=== PATIENT | female | born 1970 | race Caucasian/White ===

== ENCOUNTER 2017-01-10 12:00 | Emergency (ER) | payer SELFPAY ==
[~2017-01-10] VITALS: Ht 167.6 cm; Wt 95.3 kg
[~2017-01-10 12:00] MED LIST: ALLP100T; ALPR.5T; CITA40TA19 PO; CLN.1T; HYDR-34 PO; ONDAN4ODT PO
[2017-01-10] MEDS ORDERED: FLUO40CA12 PO (12:16)
[2017-01-10 12:30] LABS: BILIRUBIN,URINE NEGATIVE (NEGATIVE); KETONES,URINE NEGATIVE (NEGATIVE); LEUKOCYTE ESTERASE ,URINE 3+ (NEGATIVE); NITRITE,URINE NEGATIVE (NEGATIVE); PH,URINE 6 (5-9); PROTEIN,URINE 2+ (NEGATIVE); UROBILINOGEN,URINE NORMAL (NORMAL)
[2017-01-10 12:37] LABS: BASOPHILS % (AUTO) 0 % (0-10); EOSINOPHILS # (AUTO) 0.1 10^3/uL (0.0-0.3); EOSINOPHILS % (AUTO) 1 % (0-10); LYMPHOCYTES # (AUTO) 1.9 X 10^3 (1.0-4.0); LYMPHOCYTES % (AUTO) 26 % (12-44); MEAN CORPUSCULAR HEMOGLOBIN 30 PG (25-34); MEAN CORPUSCULAR HGB CONC 34 G/DL (32-36); MEAN CORPUSCULAR VOLUME 89 FL (80-99); MEAN PLATELET VOLUME 10.1 FL (7.4-10.4); MONOCYTES # (AUTO) 0.4 X 10^3 (0.0-1.0); MONOCYTES % (AUTO) 5 % (0-12); NEUTROPHILS % (AUTO) 68 % (42-75); PLATELET COUNT 333 10^3/uL (130-400); RED BLOOD COUNT 4.22 10^6/uL (4.35-5.85); RED CELL DISTRIBUTION WIDTH 13.7 % (10.0-14.5); WHITE BLOOD COUNT 7.4 10^3/uL (4.3-11.0)
[2017-01-10 12:55] LABS: ALANINE AMINOTRANSFERASE 17 U/L (0-55); ALBUMIN 4.2 GM/DL (3.2-4.5); ANION GAP 12 MMOL/L (5-14); ASPARTATE AMINO TRANSFERASE 18 U/L (5-34); BILIRUBIN,TOTAL 0.5 MG/DL (0.1-1.0); BLOOD UREA NITROGEN 5 MG/DL (7-18); BUN/CREATININE RATIO 6 (0-20); CALCIUM 9.3 MG/DL (8.5-10.1); CARBON DIOXIDE 24 MMOL/L (21-32); CHLORIDE 104 MMOL/L (98-107); CREATININE SERUM 0.81 MG/DL (0.60-1.30); GFR ESTIMATED > 60; GLUCOSE 103 MG/DL (70-105); HEMOLYSIS 4 (-100-29); ICTERUS 0.5 (-100-1.9); LIPEMIA 0 (-100-49); POTASSIUM 3.6 MMOL/L (3.6-5.0); SODIUM 140 MMOL/L (135-145); TOTAL PROTEIN 7.3 GM/DL (6.4-8.2)
--- NOTE | 2017-01-10 13:18 | ED GU-Female ---
General Chief Complaint: -Female Stated Complaint: SPONTANEOUS BLEEDING/POSS SPONTANEOUS Nursing Triage Note: Ambulatory to ED 9 with reports of vaginal bleeding x 48 hours. Patient reports that she is not sure if she is or not. Patient reports that she is saturating 1 pad approximately every hour x 48 hours. Reports intermittent abdominal cramping. Nursing Sepsis Screen: No Definite Risk Source: patient Exam Limitations: no limitations History of Present Illness Time seen by provider: 12:50 Initial Comments Here with report of vaginal bleeding that has increased over the last 2 days. Reports a pad an hour for the last 12-18 hours. Complains of some lower abdominal cramping. Also has some other vague symptoms including decreased vision and overall just not feeling right. Denies nausea or vomiting. States that she has been under increasing amount of stress over the last 9 months due to of a family member and 2 other family members with significant medical problems. She is report about cancer given family history of ovarian cancer. Timing/Duration: yesterday, getting worse Severity/Quality: moderate, cramping Location: suprapubic Radiation: none Activities at Onset: none Prior Genitourinary Problems: none Sexual [place] History: less than 2 months ago Associated Symptoms: No abdominal pain, dysuria, No loss of bladder control, No lower back pain, No nausea/vomiting Allergies and Home Medications Allergies Coded Allergies: No Known Drug Allergies (Unverified , 02/01/11) Home Medications Alprazolam 0.5 Mg Tablet, (Reported) Clonidine Hcl 0.1 Mg Tab, (Reported) Fluoxetine HCl 40 Mg Capsule, 40 MG PO DAILY, (Reported) Hydrocodone Bit/Acetaminophen 1 Ea Tablet, 1 TAB PO Q 4-6 HOURS PRN, #30 Ref 0 FOR PAIN Prescribed by: KJ VERA on 02/01/11 232 Ondansetron Hcl 4 Mg Tab, 4 MG PO Q4H, #10 Ref 0 FOR NAUSEA AND VOMITING Prescribed by: KJ VERA on 02/01/112322 Constitutional: see HPI, No chills, No fever EENTM: no symptoms reported Respiratory: no symptoms reported Cardiovascular: no symptoms reported Gastrointestinal: no symptoms reported Genitourinary: see HPI, other (heavy vaginal bleeding) Musculoskeletal: no symptoms reported Psychiatric/Neurological: Anxiety, Other (increased stress) All Other Systemes Reviewed Negative Unless Noted: Yes Past Gixwgyb-Fekxdo-Lxpqpn Hx Patient Social History Alcohol Use: Denies Use Recreational Drug Use: No Smoking Status: Never a Smoker 2nd Hand Smoke Exposure: No Recent Foreign Travel: No Contact w/Someone Who Travel: No Recent Infectious Disease Expo: No Recent Hopitalizations: Yes (kidney problems and eye surgeries ) Immunizations Up To Date Tetanus Booster (TDap): Less than 5yrs PED Vaccines UTD: Yes Surgeries HX Surgeries: Yes Surgeries: Eye Surgery Respiratory Hx Respiratory Disorders: Yes Neurological Hx Neurological Disorders: Yes Reproductive System Hx Reproductive Disorders: Yes Sexually Transmitted Disease: No Genitourinary Hx Genitourinary Disorders: Yes Gastrointestinal Hx Gastrointestinal Disorders: No Musculoskeletal Hx Musculoskeletal Disorders: No Endocrine Hx Endocrine Disorders: Yes HEENT HX ENT Disorders: No Psychosocial Hx Psychiatric Problems: Yes Blood Transfusions Hx Blood Disorders: Yes Reviewed Nursing Assessment Reviewed/Agree w Nursing PMH: Yes Family Medical History Significant Family History: No Pertinent Family Hx Physical Exam Vital Signs Vital Sign - Last 12Hours 01/10/17 12:10 Temp 98.2 Pulse 75 Resp 16 B/P (MAP) 174/107 Pulse Ox 99 O2 Delivery Room Air Capillary Refill : Less Than 3 Seconds General Appearance: WD/WN, no apparent distress HEENT: pharynx normal, other (left pupil proximal 7 mm and right pupil approximately 4 mm both pupils reactive.) Neck: full range of motion, supple Cardiovascular: regular rate, rhythm, no murmur Respiratory: lungs clear, normal breath sounds Gastrointestinal: non tender, soft Pelvic: no cerv. motion tender, No lesions, No mass, No tender uterus, vaginal bleeding Back: normal inspection, no CVA tenderness, no vertebral tenderness Extremities: non-tender, normal inspection Neurologic/Psychiatric: alert, oriented x 3 Skin: normal color, warm/dry Progress/Results/Core Measures Results/Orders Lab Results Laboratory Tests Test 01/10/17 12:20 01/10/17 12:29 01/10/17 14:40 Range/Units Urine Color YELLOW Urine Clarity SLIGHTLY CLOUDY Urine pH 6 5-9 Urine Specific [place] 1.015 L 1.016-1.022 Urine Protein 2+ H NEGATIVE Urine Glucose (UA) NEGATIVE NEGATIVE Urine Ketones NEGATIVE NEGATIVE Urine Nitrite NEGATIVE NEGATIVE Urine Bilirubin NEGATIVE NEGATIVE Urine Urobilinogen NORMAL NORMAL MG/DL Urine Leukocyte Esterase 3+ H NEGATIVE Urine RBC (Auto) 5+ H NEGATIVE Urine RBC 10-25 H /HPF Urine WBC 5-10 H /HPF Urine Squamous Epithelial Cells 2-5 /HPF Urine Crystals NONE /LPF Urine Bacteria NEGATIVE /HPF Urine Casts NONE /LPF Urine Mucus NEGATIVE /LPF Urine Culture Indicated YES White Blood Count 7.4 4.3-11.0 10^3/uL Red Blood Count 4.22 L 4.35-5.85 10^6/uL Hemoglobin 12.8 11.5-16.0 G/DL Hematocrit 38 35-52 % Mean Corpuscular Volume 89 80-99 FL Mean Corpuscular Hemoglobin 30 25-34 PG Mean Corpuscular Hemoglobin Concent 34 32-36 G/DL Red Cell Distribution Width 13.7 10.0-14.5 % Platelet Count 333 130-400 10^3/uL Mean Platelet Volume 10.1 7.4-10.4 FL Neutrophils (%) (Auto) 68 42-75 % Lymphocytes (%) (Auto) 26 12-44 % Monocytes (%) (Auto) 5 0-12 % Eosinophils (%) (Auto) 1 0-10 % Basophils (%) (Auto) 0 0-10 % Neutrophils # (Auto) 5.0 1.8-7.8 X 10^3 Lymphocytes # (Auto) 1.9 1.0-4.0 X 10^3 Monocytes # (Auto) 0.4 0.0-1.0 X 10^3 Eosinophils # (Auto) 0.1 0.0-0.3 10^3/uL Basophils # (Auto) 0.0 0.0-0.1 10^3/uL Sodium Level 140 135-145 MMOL/L Potassium Level 3.6 3.6-5.0 MMOL/L Chloride Level 104 98-107 MMOL/L Carbon Dioxide Level 24 21-32 MMOL/L Anion Gap 12 5-14 MMOL/L Blood Urea Nitrogen 5 L 7-18 MG/DL Creatinine 0.81 0.60-1.30 MG/DL Estimat Glomerular Filtration Rate > 60 BUN/Creatinine Ratio 6 0-20 Glucose Level 103 70-105 MG/DL Calcium Level 9.3 8.5-10.1 MG/DL Total Bilirubin 0.5 0.1-1.0 MG/DL Aspartate Amino Transf (AST/SGOT) 18 5-34 U/L Alanine Aminotransferase (ALT/SGPT) 17 0-55 U/L Alkaline Phosphatase 66 40-136 U/L Total Protein 7.3 6.4-8.2 GM/DL Albumin 4.2 3.2-4.5 GM/DL Micro Results Microbiology 01/10/17 Genital Culture, Resulted Pending 01/10/17 Wet Prep - Final, Resulted My Orders Orders - CLAUDE PINEDA MD Ua Culture If Indicated (01/10/17 12:23) Urine Bedside (01/10/17 12:23) Cbc With Automated Diff (01/10/17 12:23) Comprehensive Metabolic Panel (01/10/17 12:23) Urine Culture (01/10/17 12:20) Ct Head Wo (01/10/17 13:15) Wet Prep (01/10/17 13:15) Neisseria Gonorrhea Dna (01/10/17 13:15) Chlamydia Dna (01/10/17 13:15) Genital Culture (01/10/17 13:15) Us Non Ob Transvaginal 35013 (01/10/17 13:08) Saline Lock/Iv-Start (01/10/17 14:54) Mri Brain W/Wo Contrast (01/10/17 14:54) Gadobutrol Inj (Radiology) (Gadavist Inj (01/10/17 15:30) Medications Given in ED Current Medications Medications Dose Ordered Sig/Charlie Route Start Time Stop Time Status Last Admin Dose Admin Gadobutrol 10 mmol ONCE ONCE IV 01/10/17 15:30 01/10/17 15:36 DC 01/10/17 15:33 9 MMOL Vital Signs/I&O Vital Sign - Last 12Hours 01/10/17 12:10 Temp 98.2 Pulse 75 Resp 16 B/P (MAP) 174/107 Pulse Ox 99 O2 Delivery Room Air Blood Pressure Mean: 129 Point of Care Testing Urine -Bedside: Negative Progress Note : Progress Note Seen and evaluated. Labs, CT head due to unequal pupils and vague complaints of the face including numbness, UA and UCG ordered. Pelvic exam ordered. Ultrasound pelvis ordered. Monitor patient. 1500: Pelvic complete. CT scan shows some abnormality raising the concern for multiple sclerosis. MRI of brain ordered with and without contrast per radiologist's recommendation. All of these findings were discussed with the patient who agrees with plan. IV established. Patient to get MRI. 1630: MRI results noted. Patient informed. She will follow-up with her doctor for further evaluation for multiple sclerosis. She'll also follow up with her eye doctor. She also understands the need to follow-up with gynecology. Discharged home with return precautions. Patient verbalize understanding instructions and agreement with plan. Diagnostic Imaging Diagonstic Imaging: CT Plain Films/CT/US/NM/MRI: head [facility] [place] NAME: DAMION JIMENEZ [facility] REC#: [id number] PT STATUS: REG ER : 1970 PHYSICIAN: CLAUDE PINEDA MD ADMIT DATE: 01/10/17/ER Draft Date of Exam:01/10/17 CT HEAD WO INDICATION: Dizziness. Facial numbness. TECHNIQUE: Routine non contrast-enhanced axial images were obtained from the skull base to the vertex. COMPARISON: None. FINDINGS: The ventricles and cortical sulci are age appropriate. There are areas of decreased attenuation within the periventricular deep white matter of the bilateral frontal lobes, left greater than right. There is no large area of loss of trevizo-white matter junction differentiation to suggest large acute territorial infarct. There is no mass effect or midline shift. There is no evidence of intra-axial or extra-axial intracranial hemorrhage. No extra-axial masses or fluid collections are seen. Bony calvarium is intact. Paranasal sinuses and mastoid air cells are clear. IMPRESSION: 1. No acute intracranial abnormality. No CT evidence of acute infarct, mass, nor hemorrhage. 2. Areas of decreased attenuation within the periventricular deep white matter of the bilateral frontal lobes. Appearance is commonly seen with chronic small vessel ischemic changes, although this would be more prominent than expected given the patient's age. Other considerations include underlying demyelinating process such as multiple sclerosis. Correlation with clinical history is recommended. If further evaluation is desired, MRI may be of benefit. Dictated on workstation # [id number] Dict: 01/10/17 1359 Trans: 01/10/17 1413 [id number] Interpreted by: MARCO ANTONIO CASTORENA Electronically signed by: Reviewed: Reviewed by Me, Discussed w/Radiologist Diagonstic Imaging: Ultrasound Plain Films/CT/US/NM/MRI: pelvis Comments [facility] [place], [place] NAME: DAMION JIMENEZ [facility] REC#: [id number] PT STATUS: REG ER : 1970 PHYSICIAN: CLAUDE PINEDA MD ADMIT DATE: 01/10/17/ER Draft Date of Exam:01/10/17 US NON OB TRANSVAGINAL 55012 INDICATION: Vaginal bleeding for 2 weeks. FINDINGS: The uterus measures 9.3 x 5.5 x 4.8 cm. No myometrial masses are seen. There is diffuse thickening of the endometrium which is heterogeneous in appearance. This measures 1.2 cm in width. The ovaries are not visualized. No adnexal masses are demonstrated. There is no free fluid. IMPRESSION: Abnormal endometrial thickening with heterogeneous appearing endometrium. Further evaluation or short-term followup is indicated. Dictated on workstation # [id number] Dict: 01/10/17 1410 Trans: 01/10/17 1413 [id number] Interpreted by: JORGE MARQUEZ MD Electronically signed by: Reviewed: Reviewed by Me Diagonstic Imaging: MRI Plain Films/CT/US/NM/MRI: head Comments PHYSICIAN: CLAUDE PINEDA MD ADMIT DATE: 01/10/17/ER Draft Date of Exam:01/10/17 MRI BRAIN W/WO CONTRAST PROCEDURE: MR imaging of the brain with and without contrast. TECHNIQUE: Multiplanar, multisequence MR imaging of the brain was performed with and without contrast. INDICATION: Dizziness. Asymmetric dilatation of the left pupil. Facial numbness. COMPARISON: CT head from earlier same day. FINDINGS: There is no acute infarct. Postcontrast images show no abnormal areas of enhancement. There is no mass effect or midline shift. There is no evidence of intra-or extra-axial intracranial hemorrhage. No extra-axial masses or fluid collections are identified. There are scattered and confluent areas of abnormal T2/FLAIR bright signal within the periventricular and subcortical deep white matter. Appearance corresponds to areas of decreased attenuation on recent CT of the head. Midline craniocervical anatomy is maintained. Major expected intracranial flow voids are identified. No focal bony calvarial lesions are seen. Paranasal sinuses show mild mucosal thickening of the left maxillary sinus. Mastoid air cells are clear. IMPRESSION: 1. No acute intracranial abnormality. No evidence of acute infarct, mass, or hemorrhage. 2. Scattered and confluent areas of abnormal T2/FLAIR bright signal within the periventricular and subcortical deep white matter. Again, these areas correspond to areas of diminished attenuation on recent CT head. Distribution on today's exam is more consistent with early or mild chronic small vessel ischemic changes. Correlation with underlying risk factors is recommended. Demyelinating process is felt to be unlikely. There is no evidence of active demyelination on today's exam. If however there is clinical concern for multiple sclerosis or other demyelinating process, correlation with CSF flow studies is recommended. Dictated on workstation # [id number] Dict: 01/10/17 1546 Trans: 01/10/17 1552 [id number] Interpreted by: MARCO ANTONIO CASTORENA Electronically signed by: Reviewed: Reviewed by Me Departure Impression Impression: Primary Impression: Dysfunctional uterine bleeding Additional Impressions: Paresthesias Urinary tract infection Qualified Codes: N30.01 - Acute cystitis with hematuria Disposition: HOME, SELF-CARE Condition: Improved Departure-Patient Inst. Decision time for Depature: 16:34 Referrals: OLGA SMITH MD (PCP/Family) Primary Care Physician Patient Instructions: IRREGULAR VAGINAL BLEEDING, Paresthesias (DC), Urinary Tract Infection, Adult (DC) Add. Discharge Instructions: All discharge instructions reviewed with patient and/or family. Voiced understanding. Take medications as directed. It is very important that he follow up with her doctor within one week for recheck and further evaluation. You should follow- up with an eye doctor for recheck of your eye exam. It is important that he follow up with Oncologist of your choosing to further evaluate your vaginal bleeding. Return for worse pain, fever, vomiting, weakness, breathing problems or other concerns as needed. Scripts Cephalexin (Cephalexin) 500 Mg Tablet 500 MG PO BID, #14 TAB 0 Refills Prov: CLAUDE PINEDA MD 01/10/17 CLAUDE PINEDA MD Jan 10, 2017 13:18
--- NOTE | 2017-01-10 14:13 | Diagnostic Imaging Report ---
INDICATION: Dizziness. Facial numbness. TECHNIQUE: Routine non contrast-enhanced axial images were obtained from the skull base to the vertex. COMPARISON: None. FINDINGS: The ventricles and cortical sulci are age appropriate. There are areas of decreased attenuation within the periventricular deep white matter of the bilateral frontal lobes, left greater than right. There is no large area of loss of trevizo-white matter junction differentiation to suggest large acute territorial infarct. There is no mass effect or midline shift. There is no evidence of intra-axial or extra-axial intracranial hemorrhage. No extra-axial masses or fluid collections are seen. Bony calvarium is intact. Paranasal sinuses and mastoid air cells are clear. IMPRESSION: 1. No acute intracranial abnormality. No CT evidence of acute infarct, mass, nor hemorrhage. 2. Areas of decreased attenuation within the periventricular deep white matter of the bilateral frontal lobes. Appearance is commonly seen with chronic small vessel ischemic changes, although this would be more prominent than expected given the patient's age. Other considerations include underlying demyelinating process such as multiple sclerosis. Correlation with clinical history is recommended. If further evaluation is desired, MRI may be of benefit. Dictated by: Dictated on workstation # [id number]
--- NOTE | 2017-01-10 14:14 | Diagnostic Imaging Report ---
INDICATION: Vaginal bleeding for 2 weeks. FINDINGS: The uterus measures 9.3 x 5.5 x 4.8 cm. No myometrial masses are seen. There is diffuse thickening of the endometrium which is heterogeneous in appearance. This measures 1.2 cm in width. The ovaries are not visualized. No adnexal masses are demonstrated. There is no free fluid. IMPRESSION: Abnormal endometrial thickening with heterogeneous appearing endometrium. Further evaluation or short-term followup is indicated. Dictated by: Dictated on workstation # [id number]
[2017-01-10] MEDS ORDERED: GADOBUTROL 10 MMOL/10 ML (GADAVIST) VIAL IV ONE (15:30)
--- NOTE | 2017-01-10 15:52 | Diagnostic Imaging Report ---
PROCEDURE: MR imaging of the brain with and without contrast. TECHNIQUE: Multiplanar, multisequence MR imaging of the brain was performed with and without contrast. INDICATION: Dizziness. Asymmetric dilatation of the left pupil. Facial numbness. COMPARISON: CT head from earlier same day. FINDINGS: There is no acute infarct. Postcontrast images show no abnormal areas of enhancement. There is no mass effect or midline shift. There is no evidence of intra-or extra-axial intracranial hemorrhage. No extra-axial masses or fluid collections are identified. There are scattered and confluent areas of abnormal T2/FLAIR bright signal within the periventricular and subcortical deep white matter. Appearance corresponds to areas of decreased attenuation on recent CT of the head. Midline craniocervical anatomy is maintained. Major expected intracranial flow voids are identified. No focal bony calvarial lesions are seen. Paranasal sinuses show mild mucosal thickening of the left maxillary sinus. Mastoid air cells are clear. IMPRESSION: 1. No acute intracranial abnormality. No evidence of acute infarct, mass, or hemorrhage. 2. Scattered and confluent areas of abnormal T2/FLAIR bright signal within the periventricular and subcortical deep white matter. Again, these areas correspond to areas of diminished attenuation on recent CT head. Distribution on today's exam is more consistent with early or mild chronic small vessel ischemic changes. Correlation with underlying risk factors is recommended. Demyelinating process is felt to be unlikely. There is no evidence of active demyelination on today's exam. If however there is clinical concern for multiple sclerosis or other demyelinating process, correlation with CSF flow studies is recommended. Dictated by: Dictated on workstation # [id number]
[2017-01-10] MEDS ORDERED: CEPH500T PO (16:38)
[2017-01-10 16:44] VITALS: BP 152/84
--- OUTSIDE RECORDS SUMMARY | 2017-01-13 14:49 | XMS REPORT ---
Author Author SUISE IGLESIAS Organization [employer] Address Unknown Phone Unavailable Care Team Providers Care At Risk Paraprofessional Name Role Phone SUSIE IGLESIAS CP Unavailable Allergies No Known Allergies Problems Problem Type Condition Code Onset Dates Condition Status Problem Hot flashes due to menopause N95.1 Active Medications No Known Medications Results No Known Results Summary Purpose [employer] Submission
--- OUTSIDE RECORDS SUMMARY | 2017-01-13 14:50 | XMS REPORT ---
Author SUSIE Mccormick [facility] e[employer] Address Unknown Phone Unavailable Care Team Providers Care Pharmaceutical Representative Name Role Phone SUSIE IGLESIAS CP Unavailable Allergies, Adverse Reactions, Alerts Substance Reaction Event Type Bactrim Info Not Available Drug Allergy Problems Problem Type Condition Code Onset Dates Condition Status Assessment Dysuria R30.0 Active Assessment Well woman exam with routine gynecological exam Z01.419 Active Problem Hot flashes due to menopause N95.1 Active Assessment Hot flashes due to menopause N95.1 Active Assessment Breast cancer screening Z12.39 Active Medications Medication Code System Code Instructions Start Date End Date Status Dosage clonidine [facility] 0 0.2 mg May 07, 2012 take 1 tablet (0.2 mg) by oral route once daily Maxalt [facility] [address]-09 10 mg February 04, 2013 1 tablet by Oral route PRN per [facility] recommendation Cymbalta [facility] [address]-05 60 mg PO daily October 08, 2013 1 capsule by Oral route 1 time per day Ibuprofen [facility] [address]-05 200 mg May 07, 2012 not defined Citalopram Hydrobromide [facility] [address]-79 40 MG Orally Once a day 0.5 tablet Hydrocodone-Acetaminophen [facility] [address]-58 7.5-325 MG Orally every 6 hrs 1 tablet as needed Alprazolam [facility] [address]-76 0.5 MG Orally 4 times a day 1 tablet Procedures Procedure Coding System Code Date Preventive Care New Pt. Age 40-64 CPT-4 90988 May 15, 2016 No Charge CPT-4 27270 May 15, 2016 TRICHOMONAS ASSAY W/OPTIC CPT-4 63930 May 15, 2016 URINALYSIS, AUTO, W/O SCOPE CPT-4 95995 May 15, 2016 GLYCATED HEMOGLOBIN TEST CPT-4 49264 May 15, 2016 COMPLETE CBC W/AUTO DIFF WBC CPT-4 56306 May 15, 2016 VENIPUNCT, ROUTINE* CPT-4 00141 May 15, 2016 CULTURE, BACTERIA, OTHER CPT-4 58155 May 15, 2016 WILSON VAG, DNA, DIR PROBE CPT-4 25223 May 15, 2016 LIPID PANEL CPT-4 35327 May 15, 2016 SPECIMEN HANDLING CPT-4 66235 May 15, 2016 Vital Signs Date/Time: May 15, 2016 Cardiac Monitoring Heart Rate 98 bpm Weight 214.4 lbs Height 67 in BMI 33.58 Index Blood Pressure Diastolic 77 mmHg Blood Pressure Systolic 124 mmHg Results Name Result Date Reference Range Unit Abnormality Flag BACTERIAL VAGINOSIS (IN HOUSE) ----Lot # [id number] ----Exp date [id number] ----RESULTS Negative [id number] ----Control + [id number] CULTURE, GENITAL ----Genital Culture, Routine Final report [id number] ROUTINE VENIPUNCTURE TRICHOMONAS (IN HOUSE) ----Exp date [id number] ----Control + [id number] ----Lot # [id number] ----TRICHOMONAS Negative [id number] PAP TEST W/ HPV REGARDLESS ----. . [id number] ----HPV, high-risk Negative [id number] Negative A1C ----Hemoglobin A1c 5.5 19814790 4.8-5.6 % CBC ----WBC 7.0 20230517 3.4-10.8 x10E3/uL ----RBC 4.20 24910561 3.77-5.28 x10E6/uL ----Hemoglobin 12.7 84888549 11.1-15.9 g/dL ----RDW 13.9 93929477 12.3-15.4 % ----Platelets 355 38156656 150-379 x10E3/uL ----Baso (Absolute) 0.0 35440445 0.0-0.2 x10E3/uL ----Eos (Absolute) 0.3 00909535 0.0-0.4 x10E3/uL ----Hematocrit 37.7 79105440 34.0-46.6 % ----Monocytes(Absolute) 0.4 55516613 0.1-0.9 x10E3/uL ----MCV 90 97690790 79-97 fL ----Lymphs (Absolute) 2.3 44124787 0.7-3.1 x10E3/uL ----MCH 30.2 51330248 26.6-33.0 pg ----Neutrophils (Absolute) 4.0 87063419 1.4-7.0 x10E3/uL ----MCHC 33.7 17363292 31.5-35.7 g/dL ----Neutrophils 57 51801053 % ----Immature Granulocytes 0 20523093 % ----Lymphs 33 84663593 % ----Immature Grans (Abs) 0.0 57394004 0.0-0.1 x10E3/uL ----Monocytes 6 28643946 % ----Eos 4 19683385 % ----Basos 0 93579080 % CMP ----eGFR If Africn Am 92 39598971 >59 mL/min/1.73 ----eGFR If NonAfricn Am 80 37374079 >59 mL/min/1.73 ----Sodium, Serum 143 83605373 136-144 mmol/L ----BUN/Creatinine Ratio 6 17513695 9-23 L ----Chloride, Serum 99 45466730 97-106 mmol/L ----Potassium, Serum 3.9 95451542 3.5-5.2 mmol/L ----A/G Ratio 1.7 29534242 1.1-2.5 ----Bilirubin, Total 0.2 40354024 0.0-1.2 mg/dL ----Alkaline Phosphatase, S 81 97752116 39-117 IU/L ----AST (SGOT) 19 73360855 0-40 IU/L ----ALT (SGPT) 13 07741263 0-32 IU/L ----Glucose, Serum 85 82546723 65-99 mg/dL ----Creatinine, Serum 0.87 89002321 0.57-1.00 mg/dL ----BUN 5 18486150 6-24 mg/dL L ----Carbon Dioxide, Total 27 22839774 18-29 mmol/L ----Globulin, Total 2.5 16147278 1.5-4.5 g/dL ----Albumin, Serum 4.3 50255877 3.5-5.5 g/dL ----Protein, Total, Serum 6.8 28186293 6.0-8.5 g/dL ----Calcium, Serum 9.1 49285381 8.7-10.2 mg/dL UA LONG DIP (IN HOUSE) ----KET Negative 27710055 ----ELIZABETH Negative 05018814 ----GLU Negative [id number] ----Odor None 87830112 ----Color Yellow 31856001 ----Clarity Clear [id number] ----Exp date [id number] ----Lot # [id number] ----NIT Negative [id number] ----YOHANA 1+ [id number] ----BLO Trace-intact 92592198 ----pH 6.0 89907511 ----Protein Negative 76709251 ----URO 0.2 85585152 ----SG 1.025 70954785 LIPID PANEL ----LDL Cholesterol Calc 183 83521550 0-99 mg/dL H ----VLDL Cholesterol Elías 75 43859952 5-40 mg/dL H ----HDL Cholesterol 47 93619331 >39 mg/dL ----Triglycerides 377 58166567 0-149 mg/dL H ----Cholesterol, Total 305 66495650 100-199 mg/dL H PDF Report ----PDF Report1 [facility] [id number] Summary Purpose eClinicalWorks Submission
--- OUTSIDE RECORDS SUMMARY | 2017-01-13 14:50 | XMS REPORT | Continuity of Care Document ---
Author Author [facility] Address Unknown Phone Unavailable Allergies Active Description Code Type Severity Reaction Onset Reported/Identified Relationship to Patient Clinical Status Yes Bactrim Drug Allergy 10/16/2012 Yes Bactrim Drug Allergy N/A N/A 10/16/2012 Medications Problems Date Dx Coded Attending Type Code Diagnosis Diagnosed By 01/29/2008 DARCIE MORGAN APRN 296.90 MOOD DISORDER 01/29/2008 YURI HENDERSON APRN A 296.90 MOOD DISORDER 01/29/2008 YURI HENDERSON APRN A 296.90 MOOD DISORDER 01/29/2008 YURI HENDERSON APRN A 296.90 MOOD DISORDER 09/16/2008 DARCIE MORGAN APRN 296.30 MAJOR DEPRESSIVE AFFECTIVE DISORDER RECURRENT EPISODE UNSPECIFIED DEGREE 09/16/2008 SANTIAGO KU YURI A 296.30 MAJOR DEPRESSIVE AFFECTIVE DISORDER RECURRENT EPISODE UNSPECIFIED DEGREE 09/16/2008 MADY HENDERSON APRNIDI A 296.30 MAJOR DEPRESSIVE AFFECTIVE DISORDER RECURRENT EPISODE UNSPECIFIED DEGREE 09/16/2008 SANTIAGO KU, YURI A 296.30 MAJOR DEPRESSIVE AFFECTIVE DISORDER RECURRENT EPISODE UNSPECIFIED DEGREE 02/05/2011 DARCIE MORGAN APRN S 634.90 SPONTANEOUS UNSPECIFIED WITHOUT COMPLICATION 02/05/2011 SANTIAGO KU YURI A 634.90 SPONTANEOUS UNSPECIFIED WITHOUT COMPLICATION 02/05/2011 SANTIAGO KU YURI A 634.90 SPONTANEOUS UNSPECIFIED WITHOUT COMPLICATION 02/05/2011 MADY HENDERSON APRNIDI A 634.90 SPONTANEOUS UNSPECIFIED WITHOUT COMPLICATION 10/16/2012 YURI HENDERSON APRN A 278.00 OBESITY 10/16/2012 YURI HENDERSON APRN A V73.81 HPV SCREENING 10/16/2012 YURI EHNDERSON APRN A V74.5 STD SCREEN 10/16/2012 YURI HENDERSON APRN A V76.10 BREAST CANCER SCREENING 10/16/2012 SANTIAGO KU YURI A V76.2 CERVICAL CANCER SCREENING (PAP SMEAR) 10/16/2012 SANTIAGO CABRERALeon YURI A 278.00 OBESITY 10/16/2012 SANTIAGO CABRERALeon YURI A V73.81 HPV SCREENING 10/16/2012 SANTIAGO CABRERALeon YURI A V74.5 STD SCREEN 10/16/2012 SANTIAGO CABRERALeon YURI A V76.10 BREAST CANCER SCREENING 10/16/2012 SANTIAGO CABRERALeon YURI A V76.2 CERVICAL CANCER SCREENING (PAP SMEAR) 10/16/2012 SANTIAGO CABRERALeon YURI A 278.00 OBESITY 10/16/2012 SANTIAGO CABRERALeon YURI A V73.81 HPV SCREENING 10/16/2012 SANTIAGO CABRERALeon YURI A V74.5 STD SCREEN 10/16/2012 SANTIAGO CABRERALeon YURI A V76.10 BREAST CANCER SCREENING 10/16/2012 SANTIAGO CABRERALeon YURI A V76.2 CERVICAL CANCER SCREENING (PAP SMEAR) 06/07/2013 SANTIAGO CABRERALeon YURI A 625.8 OTHER SPECIFIED SYMPTOMS ASSOCIATED WITH FEMALE GENITAL ORGANS 06/07/2013 SANTIAGO CABRERALeon YURI A 626.4 IRREGULAR MENSTRUAL CYCLE 06/07/2013 SANTIAGO CABRERALeon YURI A V76.12 MAMMOGRAM SCREENING 06/07/2013 SANTIAGO CABRERALeon YURI A 625.8 OTHER SPECIFIED SYMPTOMS ASSOCIATED WITH FEMALE GENITAL ORGANS 06/07/2013 SANTIAGO CABRERALeon YURI A 626.4 IRREGULAR MENSTRUAL CYCLE 06/07/2013 SANTIAGO CABRERALeon YURI A V76.12 MAMMOGRAM SCREENING 10/27/2013 SANTIAGO CABRERALeon YURI A 616.10 VAGINITIS AND VULVOVAGINITIS UNSPECIFIED Procedures Code Description [place] [address] TRICHOMONAS (IN-HOUSE) 10/16/2012 14757 CULTURE UROGENITAL 10/19/2012 94082 MAMMOGRAM, SCREENING 10/19/2012 60578 GC/CHLAM PROBE (STATE) 10/19/2012 93917 PAP SMEAR 2012 Q0091 PAP SMEAR OBTAIN SMEAR 10/19/2012 87030 MAMMOGRAM, SCREENING 06/07/2013 36910 GC/CHLAM PROBE (STATE) 06/07/2013 22178 URINE TEST (IN-HOUSE) 06/07/2013 80855 A1C (IN-HOUSE) 78937 UA LONG DIP 06/07 45155 TRICHOMONAS (IN-HOUSE) 06/07/2013 22730 CULTURE UROGENITAL 06/09/2013 24836 GC/CHLAM PROBE (STATE) 10/27/2013 18471 TRICHOMONAS (IN-HOUSE) 10/27/2013 52595 CULTURE UROGENITAL 10/31/2013 Results Encounters ACCT No. Visit Date/Time Discharge Status Pt. Type Provider Facility Loc./Unit Complaint [id number] 10/27/2013 15:48:00 10/27/2013 23: 59:59 CLS Outpatient YURI HENDERSON APRN [id number] 06/07/2013 13:17:00 06/07/2013 23: 59:59 CLS Outpatient YURI HENDERSON APRN [id number] 10/16/2012 15:08:00 10/16/2012 23: 59:59 CLS Outpatient YURI HENDERSON APRN [id number] 10/03/2012 09:47:00 10/03/2012 23: 59:59 CLS Outpatient DARCIE MORGAN APRN
== END 2017-01-10 16:44 | disposition home or self-care (01) ==
LOC: EDUNIT# 12:00 → ER 12:04
DX: N93.8 Other specified abnormal uterine and vaginal bleeding (principal); N39.0 Urinary tract infection, site not specified; R20.2 Paresthesia of skin; Z32.02 Encounter for pregnancy test, result negative
CPT/HCPCS: 36415; 70450; 70553; 76830; 80053; 81000; 84703; 85025; 87070; 87088; 87210; 87491; 87591

== ENCOUNTER → 2019-03-18 | Outpatient (CLI) | payer SELFPAY ==
[~2019-03-18] MED LIST changes: +CEPH500T PO; +FLUO40CA12 PO
--- NOTE | 2019-03-18 11:20 | Diagnostic Imaging Report ---
INDICATION: Right hip pain status post injury. COMPARISON: None. FINDINGS: 2 radiographic views of the right hip were obtained. There is no fracture, dislocation, bone destruction, or radiopaque foreign body. The visualized pelvic osseous structures and the SI joints demonstrate no acute fracture or dislocation. There is no bone destruction or radiopaque foreign body. The surrounding soft tissue structures are unremarkable. IMPRESSION: 1. No acute fracture or dislocation of the right hip. Dictated by: Dictated on workstation # [id number]
== END ==
LOC: RAD FS 11:04
PROVIDERS: ATTEND Family Medicine
DX: M25.551 Pain in right hip (principal); Z87.828 Personal history of other (healed) physical injury and trauma
CPT/HCPCS: 73502

== ENCOUNTER → 2019-04-20 | Outpatient (CLI) | payer SELFPAY ==
--- NOTE | 2019-04-20 11:38 | Diagnostic Imaging Report ---
INDICATION: Trauma to the right hip years ago, continued pain that is increasing in severity. TECHNIQUE: 2 views of the right hip. CORRELATION STUDY: 03/18/2019 FINDINGS: Images of the hip demonstrate no evidence for acute fracture. Alignment is anatomic. The femoral head acetabular relationship is unremarkable. The bony trabecular pattern is intact. IMPRESSION: 1. Negative for acute bony abnormality of the right hip. Given continued symptoms, if further assessment is desired, MRI would be recommended. Dictated by: Dictated on workstation # [id number]
== END ==
LOC: RAD FS 10:38
PROVIDERS: ATTEND Nurse Practitioner
DX: M25.551 Pain in right hip (principal)
CPT/HCPCS: 73502

== ENCOUNTER 2019-04-27 10:41 | Emergency (ER) | payer MEDICAID ==
[~2019-04-27] VITALS: Ht 167.8 cm; Wt 94.2 kg
[2019-04-27] MEDS ORDERED: morphine INJ 10 MG/ML 1ML (SYR OR VIAL) IVP STA (11:07)
[2019-04-27] MEDS ORDERED: LABETALOL HCL 20 MG/4 ML VIAL IV ONE (11:15)
[2019-04-27] MEDS ORDERED: ONDANSETRON 4 MG/2 ML (SDV) Z0FRAN IVP ONE (11:15)
[2019-04-27 11:21] LABS: HEMATOCRIT 31 % (35-52); HEMOGLOBIN 9.7 G/DL (11.5-16.0); MEAN CORPUSCULAR HEMOGLOBIN 24 PG (25-34); MEAN CORPUSCULAR VOLUME 77 FL (80-99)
[2019-04-27 11:22] LABS: BASOPHILS % (AUTO) 0 % (0-10); EOSINOPHILS % (AUTO) 0 % (0-10); LYMPHOCYTES # (AUTO) 2.2 X 10^3 (1.0-4.0); LYMPHOCYTES % (AUTO) 22 % (12-44); MEAN CORPUSCULAR HGB CONC 31 G/DL (32-36); MEAN PLATELET VOLUME 9.4 FL (7.4-10.4); MONOCYTES # (AUTO) 0.7 X 10^3 (0.0-1.0); MONOCYTES % (AUTO) 7 % (0-12); NEUTROPHILS % (AUTO) 70 % (42-75); PLATELET COUNT 449 10^3/uL (130-400); RED CELL DISTRIBUTION WIDTH 17.2 % (10.0-14.5)
--- NOTE | 2019-04-27 11:28 | ED General ---
General Chief Complaint: Cardiac/General Problems Stated Complaint: BP 160/100 History of Present Illness Date Seen by Provider: Apr 27, 2019 Time Seen by Provider: 11:18 Initial Comments Patient presenting to the emergency department for evaluation of multiple complaints including chest and arm pain and left-sided numbness nausea shortness of breath and dizziness. All of these symptoms have been happening intermittently over the past 1 week. The chest pain is more in her left shoulder region and left humerus and she describes it as a squeezing sensation that has been intermittent until last 2 days it is more constant and worse with exertion such as climbing stairs or walking. She says that she gets dizzy with the chest pain as well as nauseated and short of breath. She has a history of hypertension high cholesterol and family history of heart disease as multiple family members have had heart attacks in their 50s she thinks she had a stress test 3 years ago in [place] but has never had a heart catheterization or stents placed. She takes a full aspirin daily including today she took a full aspirin. She was at the clinic when she was explaining the symptoms and her blood pressure is somewhat elevated. She was told to come to the emergency department last weekend on Friday however she refused at that time. She also says that she has had numbness to her left face arm and leg and has had expressive aphasia time and says well over the past one week. She denies any unilateral weakness or vision changes but she does say that she has a headache behind her right eye has a history of migraines but this feels different than her typical migraines. Allergies and Home Medications Allergies Coded Allergies: No Known Drug Allergies (Unverified , 02/01/11) Home Medications Cephalexin 500 Mg Tablet, 500 MG PO BID Prescribed by: CLAUDE PINEDA on 01/10/17 1638 Fluoxetine HCl 40 Mg Capsule, 40 MG PO DAILY, (Reported) Hydrocodone Bit/Acetaminophen 1 Ea Tablet, 1 TAB PO Q 4-6 HOURS PRN FOR PAIN Prescribed by: KJ VERA on 02/01/112322 Ondansetron Hcl 4 Mg Tab, 4 MG PO Q4H FOR NAUSEA AND VOMITING Prescribed by: KJ VERA on 02/01/11 232 Patient Home Medication List Home Medication List Reviewed: Yes Review of Systems Review of Systems Constitutional: no symptoms reported EENTM: no symptoms reported Respiratory: short of breath Cardiovascular: chest pain Gastrointestinal: No abdominal pain; nausea; No vomiting Genitourinary: no symptoms reported Musculoskeletal: no symptoms reported Skin: no symptoms reported Psychiatric/Neurological: Headache, Numbness All Other Systems Reviewed Negative Unless Noted: Yes Past Vqayimi-Ftlygi-Lxwhlh Hx Patient Social History 2nd Hand Smoke Exposure: No Recent Hopitalizations: Yes (kidney problems and eye surgeries ) Immunizations Up To Date Tetanus Booster (TDap): Less than 5yrs PED Vaccines UTD: Yes Past Medical History Surgeries: Yes Eye Surgery Respiratory: Yes Neurological: Yes Reproductive Disorders: Yes Sexually Transmitted Disease: No Gastrointestinal: No Musculoskeletal: No Endocrine: Yes Psychosocial: Yes Blood Disorders: Yes Family Medical History No Pertinent Family Hx Physical Exam Vital Signs Vital Signs - First Documented 04/27/19 10:46 Temp 36.8 Pulse 95 Resp 17 B/P (MAP) 166/110 (128) Pulse Ox 98 O2 Delivery Room Air Capillary Refill : Height, Weight, BMI Height: 5'6.00" Weight: 210lbs. oz. 95.245726ee; BMI Method:Stated General Appearance: No Apparent Distress, WD/WN HEENT: PERRL/EOMI Neck: Supple Respiratory: Lungs Clear, No Respiratory Distress Cardiovascular: Regular Rate, Rhythm, No Edema Gastrointestinal: Non Tender, Soft Back: Normal Inspection Extremity: Normal Capillary Refill, No Pedal Edema Neurologic/Psychiatric: Alert, Oriented x3, Sensory Deficit (L face, arm, leg) Skin: Normal Color Progress/Results/Core Measures Suspected Sepsis SIRS Temperature: Pulse: Respiratory Rate: Laboratory Tests 04/27/19 11:00: White Blood Count 10.0 Blood Pressure / Mean: Laboratory Tests 04/27/19 11:00: Creatinine 0.91, INR Comment 0.9, Platelet Count 449H, Total Bilirubin < 0.2 Results/Orders Lab Results Laboratory Tests Test 04/27/19 11:00 04/27/19 11:25 Range/Units White Blood Count 10.0 4.3-11.0 10^3/uL Red Blood Count 4.10 L 4.35-5.85 10^6/uL Hemoglobin 9.7 L 11.5-16.0 G/DL Hematocrit 31 L 35-52 % Mean Corpuscular Volume 77 L 80-99 FL Mean Corpuscular Hemoglobin 24 L 25-34 PG Mean Corpuscular Hemoglobin Concent 31 L 32-36 G/DL Red Cell Distribution Width 17.2 H 10.0-14.5 % Platelet Count 449 H 130-400 10^3/uL Mean Platelet Volume 9.4 7.4-10.4 FL Neutrophils (%) (Auto) 70 42-75 % Lymphocytes (%) (Auto) 22 12-44 % Monocytes (%) (Auto) 7 0-12 % Eosinophils (%) (Auto) 0 0-10 % Basophils (%) (Auto) 0 0-10 % Neutrophils # (Auto) 7.0 1.8-7.8 X 10^3 Lymphocytes # (Auto) 2.2 1.0-4.0 X 10^3 Monocytes # (Auto) 0.7 0.0-1.0 X 10^3 Eosinophils # (Auto) 0.0 0.0-0.3 10^3/uL Basophils # (Auto) 0.0 0.0-0.1 10^3/uL Prothrombin Time 12.3 12.2-14.7 SEC INR Comment 0.9 0.8-1.4 Activated Partial Thromboplast Time 29 24-35 SEC D-Dimer 0.23 0.00-0.49 UG/ML Sodium Level 141 135-145 MMOL/L Potassium Level 3.8 3.6-5.0 MMOL/L Chloride Level 102 98-107 MMOL/L Carbon Dioxide Level 27 21-32 MMOL/L Anion Gap 12 5-14 MMOL/L Blood Urea Nitrogen 13 7-18 MG/DL Creatinine 0.91 0.60-1.30 MG/DL Estimat Glomerular Filtration Rate > 60 BUN/Creatinine Ratio 14 Glucose Level 117 H 70-105 MG/DL Calcium Level 9.3 8.5-10.1 MG/DL Corrected Calcium 9.1 8.5-10.1 MG/DL Magnesium Level 1.8 1.6-2.4 MG/DL Total Bilirubin < 0.2 0.1-1.0 MG/DL Aspartate Amino Transf (AST/SGOT) 12 5-34 U/L Alanine Aminotransferase (ALT/SGPT) 11 0-55 U/L Alkaline Phosphatase 117 40-136 U/L Troponin I < 0.30 <0.30 NG/ML Pro-B-Type Natriuretic Peptide 144.7 H <75.0 PG/ML Total Protein 7.2 6.4-8.2 GM/DL Albumin 4.3 3.2-4.5 GM/DL Lipase 40 8-78 U/L Urine Color YELLOW Urine Clarity CLEAR Urine pH 6.0 5-9 Urine Specific [place] 1.015 L 1.016-1.022 Urine Protein NEGATIVE NEGATIVE Urine Glucose (UA) NEGATIVE NEGATIVE Urine Ketones NEGATIVE NEGATIVE Urine Nitrite NEGATIVE NEGATIVE Urine Bilirubin NEGATIVE NEGATIVE Urine Urobilinogen 0.2 NORMAL MG/DL Urine Leukocyte Esterase NEGATIVE NEGATIVE Urine RBC (Auto) NEGATIVE NEGATIVE Urine RBC NONE /HPF Urine WBC 0-2 /HPF Urine Squamous Epithelial Cells 5-10 /HPF Urine Crystals NONE /LPF Urine Bacteria TRACE /HPF Urine Casts NONE /LPF Urine Mucus NONE /LPF Urine Culture Indicated NO My Orders Orders - JULIETA IVAN DO Cbc With Automated Diff (04/27/19 11:07) Comprehensive Metabolic Panel (04/27/19 11:07) Ct Head Wo (04/27/19 11:07) Fibrin Degradation Products (04/27/19 11:07) Lipase (04/27/19 11:07) Magnesium (04/27/19 11:07) Partial Thromboplastin Time (04/27/19 11:07) Probnp Fs (04/27/19 11:07) Protime With Inr (04/27/19 11:07) Ua Culture If Indicated (04/27/19 11:07) Chest 1 View Ap/Pa Only (04/27/19 11:07) Ondansetron Injection (Zofran Injectio (04/27/19 11:15) Morphine Injection (Morphine Injection (04/27/19 11:07) Labetalol Injection (Normodyne Injection (04/27/19 11:15) Troponin I Fs (04/27/19 11:07) Ekg Tracing (04/27/19 10:49) Promethazine Injection (Phenergan Injec (04/27/19 12:30) Diphenhydramine Injection (Benadryl Inje (04/27/19 12:30) Ketorolac Injection (Toradol Injection) (04/27/19 12:30) Metoprolol Tartrate (Ir) Tab (Lopressor (04/27/19 12:30) Metoprolol Tartrate (Ir) Tab (Lopressor (04/27/19 12:53) Metoprolol Tartrate (Ir) Tab (Lopressor (04/27/19 13:00) Lorazepam Injection (Ativan Injection) (04/27/19 13:30) Medications Given in ED Current Medications Medications Dose Ordered Sig/Charlie Route Start Time Stop Time Status Last Admin Dose Admin Ketorolac Tromethamine 15 mg ONCE ONCE IVP 04/27/19 12:30 04/27/19 12:31 DC 04/27/19 12:56 15 MG Labetalol HCl 20 mg ONCE ONCE IV 04/27/19 11:15 04/27/19 11:16 DC 04/27/19 11:30 20 MG Lorazepam 1 mg ONCE ONCE IVP 04/27/19 13:30 04/27/19 13:31 DC 04/27/19 13:36 1 MG Metoprolol Tartrate 50 mg ONCE ONCE PO 04/27/19 13:00 04/27/19 13:01 DC 04/27/19 13:10 50 MG Ondansetron HCl 4 mg ONCE ONCE IVP 04/27/19 11:15 04/27/19 11:16 DC 04/27/19 11:29 4 MG Promethazine HCl 25 mg ONCE ONCE IVP 04/27/19 12:30 04/27/19 12:31 DC 04/27/19 12:56 25 MG Vital Signs/I&O 04/27/19 10:46 Temp 36.8 Pulse 95 Resp 17 B/P (MAP) 166/110 (128) Pulse Ox 98 O2 Delivery Room Air Capillary Refill : Progress Note : Progress Note Patient with multiple risk factors for heart disease. She has signs of LVH as well as flattened T waves in aVL but no acute ST elevation or depression. Her blood pressure is quite elevated here so she was given labetalol. She will get labs and imaging tested and then a disposition plan will be made. Patient's troponin is negative for more than 6 hours out from the onset of symptoms. Her other workup shows that she likely has iron deficiency anemia but she denies any black or bloody stools. She also has a mildly elevated BNP. I relayed all the findings on her imaging and workup and recommended admission to the hospital given she has a heart score equal to 4 with a quite elevated blood pressure. Patient refused stating that she has too much stress going on at home as her daughter's house had the roof caved in from water and she is dealing with stress from this and she needs to help take care of her family. I explained why I wanted to admit patient to hospital including further testing for vascular disease such as CAD and CVA and she verbalized understanding and accepted the risks of and disability by not following my recommendations. Patient wants to be prescribed something for anxiety to told her I can prescribe when necessary Ativan for this but that I need to add additional blood pressure medication to regiment as I do not think the clonidine is cutting it. I again explained to her that she is at high risk for vascular disease and if she has any further pain shortness of breath or other concerns she should come back to the emergency department immediately. Patient did have a migraine headache here for which I gave her Phenergan and Toradol and she said this completely took her headache away. Patient will be discharged in guarded condition with the above instructions. Of note we did make cardiology f/u for patient in 6 days, the soonest we could find locally. Departure Impression Primary Impression: Chest pain on exertion Additional Impressions: Hypertension Anemia Left sided numbness Elevated brain natriuretic peptide (BNP) level Disposition: 01 HOME, SELF-CARE Condition: Improved Departure-Patient Inst. Referrals: ОЛЕГ MUÑOZ MD (PCP/Family) Primary Care Physician Patient Instructions: Chest Pain (DC) Scripts Metoprolol Tartrate (Metoprolol Tartrate) 50 Mg Tablet 50 MG PO BID for 30 Days, TAB Prov: JULIETA IVAN DO 04/27/19 Lorazepam (Ativan) 1 Mg Tablet 1 MG PO Q8H PRN for ANXIETY for 3 Days, #8 TAB Prov: JULIETA IVAN DO 04/27/19 Ferrous Sulfate (Iron) 325 Mg Tablet 325 MG PO BID for 30 Days, TAB Prov: JULIETA IVAN DO 04/27/19 JULIETA IVAN DO Apr 27, 2019 11:27
[2019-04-27 11:35] LABS: CLARITY,URINE CLEAR; COLOR,URINE YELLOW; GLUCOSE, URINE (UA) NEGATIVE (NEGATIVE); KETONES,URINE NEGATIVE (NEGATIVE); PROTEIN,URINE NEGATIVE (NEGATIVE)
[2019-04-27 11:36] LABS: BACTERIA,URINE TRACE /HPF; BILIRUBIN,URINE NEGATIVE (NEGATIVE); LEUKOCYTE ESTERASE ,URINE NEGATIVE (NEGATIVE); NITRITE,URINE NEGATIVE (NEGATIVE); UROBILINOGEN,URINE 0.2 MG/DL (NORMAL); WBC,URINE 0-2 /HPF
[2019-04-27 11:37] LABS: BUN/CREATININE RATIO 14; CARBON DIOXIDE 27 MMOL/L (21-32); CHLORIDE 102 MMOL/L (98-107); CREATININE SERUM 0.91 MG/DL (0.60-1.30); GFR ESTIMATED > 60; POTASSIUM 3.8 MMOL/L (3.6-5.0); SODIUM 141 MMOL/L (135-145)
[2019-04-27 11:38] LABS: ALANINE AMINOTRANSFERASE 11 U/L (0-55); ALKALINE PHOSPHATASE 117 U/L (40-136); BILIRUBIN,TOTAL < 0.2 MG/DL (0.1-1.0); CALCIUM 9.3 MG/DL (8.5-10.1); GLUCOSE 117 MG/DL (70-105); MAGNESIUM 1.8 MG/DL (1.6-2.4); TOTAL PROTEIN 7.2 GM/DL (6.4-8.2)
[2019-04-27 11:39] LABS: ALBUMIN 4.3 GM/DL (3.2-4.5); LIPASE 40 U/L (8-78)
--- NOTE | 2019-04-27 12:08 | Diagnostic Imaging Report ---
EXAMINATION: Chest, one view at 11:33 a.m. INDICATION: Head pressure. COMPARISON: There are no prior studies available for comparison. FINDINGS: The heart size is within normal limits. The lungs are clear. There is no evidence for failure, pneumonia, or for a pleural effusion. The mediastinum is not widened. The osseous structures are intact. IMPRESSION: There is no evidence for an acute cardiopulmonary abnormality. Dictated by: Dictated on workstation # [id number]
[2019-04-27 12:09] LABS: INR 0.9 (0.8-1.4); PROTHROMBIN TIME PATIENT 12.3 SEC (12.2-14.7)
--- NOTE | 2019-04-27 12:11 | Diagnostic Imaging Report ---
PROCEDURE: CT head without contrast. TECHNIQUE: Multiple contiguous axial images were obtained through the brain without the use of intravenous contrast. Auto Exposure Controls were utilized during the CT exam to meet ALARA standards for radiation dose reduction. INDICATION: Head pressure. COMPARISON: Correlation is made with prior head CT from 01/10/2017. FINDINGS: The ventricles and sulci are stable in appearance. No sulcal effacement or midline shift is identified. No acute intra-axial or extra-axial hemorrhage is detected. Cisterns are patent. Visualized paranasal sinuses are clear. IMPRESSION: No acute intracranial process is detected. Dictated by: Dictated on workstation # [id number]
[2019-04-27] MEDS ORDERED: meTOprolol TARTRATE 50 MG (LOPRESSOR) TAB PO ONE (12:30)
[2019-04-27] MEDS ORDERED: PROMETHAZINE INJ 25 MG/ML (PHENERGAN) AMP IVP ONE (12:30)
[2019-04-27] MEDS ORDERED: KETOROLAC 15 MG/ML VIAL IVP ONE (12:30)
[2019-04-27] MEDS ORDERED: diphenhydrAMINE 50 MG/ML INJ (BENADRYL) IVP ONE (12:30)
[2019-04-27 12:49] LABS: FIBRIN DEGRADATION PRODUCTS 0.23 UG/ML (0.00-0.49)
[2019-04-27] MEDS ORDERED: meTOprolol TARTRATE 25 MG (LOPRESSOR) TABLET ONE (12:53)
[2019-04-27] MEDS ORDERED: meTOprolol TARTRATE 25 MG (LOPRESSOR) TABLET PO ONE (13:00)
[2019-04-27] MEDS ORDERED: LORazepam INJ 2 MG/ML (ATIVAN) VIAL IVP ONE (13:30)
[2019-04-27] MEDS ORDERED: FERR-84 PO (14:17)
[2019-04-27] MEDS ORDERED: METO50TA15 PO (14:17)
[2019-04-27] MEDS ORDERED: LORA-405 PO (14:17)
[2019-04-27 14:35] VITALS: BP 148/92
== END 2019-04-27 14:35 | disposition home or self-care (01) ==
LOC: EDUNIT# 10:41 → ER FS 10:43
DX: R07.89 Other chest pain (principal); I10 Essential (primary) hypertension; D64.9 Anemia, unspecified; R20.0 Anesthesia of skin; R79.89 Other specified abnormal findings of blood chemistry; E78.00 Pure hypercholesterolemia, unspecified; Z82.49 Family history of ischemic heart disease and other diseases of the circulatory system; Z79.82 Long term (current) use of aspirin
CPT/HCPCS: 36415; 70450; 71045; 80053; 81000; 83690; 83735; 83880; 84484; 85025; 85379; 85610; 85730; 96374; 96375

== ENCOUNTER 2019-05-04 10:13 | Day surgery (SDC) | payer MEDICAID ==
[2019-05-04] VITALS (10 sets, daily range): BP systolic 118–145; BP diastolic 72–89
[~2019-05-04] VITALS: Ht 170.2 cm; Wt 95.0 kg
[~2019-05-04 10:13] MED LIST changes: +FERR-84 PO; +LORA-405 PO; +METO50TA15 PO
[2019-05-04] MEDS ORDERED: HEParin (CATH LAB) 2,000 ML IV ONE (10:22)
[2019-05-04] MEDS ORDERED: LIDOCAINE 1% INJ 20 ML 20 ML VIAL ONE (10:22)
[2019-05-04] MEDS ORDERED: NS IV 1000 ML 1,000 ML IV SCH ×2 (10:30→14:58)
[2019-05-04 10:49] LABS: HEMOGLOBIN 9.4 G/DL (11.5-16.0); MEAN PLATELET VOLUME 9.4 FL (7.4-10.4); RED CELL DISTRIBUTION WIDTH 18.6 % (10.0-14.5); WHITE BLOOD COUNT 8.5 10^3/uL (4.3-11.0)
[2019-05-04 11:08] LABS: INR 0.9 (0.8-1.4); PROTHROMBIN TIME PATIENT 12.4 SEC (12.2-14.7)
[2019-05-04 11:09] LABS: ALANINE AMINOTRANSFERASE 19 U/L (0-55); ALBUMIN 3.9 GM/DL (3.2-4.5); ALKALINE PHOSPHATASE 111 U/L (40-136); BILIRUBIN,TOTAL 0.3 MG/DL (0.1-1.0); BUN/CREATININE RATIO 12; CALCIUM 8.6 MG/DL (8.5-10.1); CARBON DIOXIDE 25 MMOL/L (21-32); CHLORIDE 106 MMOL/L (98-107); CHOLESTEROL 252 MG/DL (< 200); CREATININE SERUM 0.95 MG/DL (0.60-1.30); GFR ESTIMATED > 60; GLUCOSE 95 MG/DL (70-105); HDL CHOLESTEROL 74 MG/DL (40-60); POTASSIUM 4.2 MMOL/L (3.6-5.0); SODIUM 138 MMOL/L (135-145); TOTAL PROTEIN 6.4 GM/DL (6.4-8.2); TRIGLYCERIDES 154 MG/DL (<150); VLDL CHOLESTEROL 31 MG/DL (5-40)
[2019-05-04] MEDS ORDERED: IBUP-2055 PO (11:27)
[2019-05-04] MEDS ORDERED: RT-ALBUINH IH (11:27)
[2019-05-04] MEDS ORDERED: ASPI-983 PO (11:27)
[2019-05-04] MEDS ORDERED: GABA-488 PO (11:27)
[2019-05-04] MEDS ORDERED: DULO60CA6 PO (11:27)
[2019-05-04] MEDS ORDERED: CLON0.1T PO (11:27)
[2019-05-04] MEDS ORDERED: RANI-613 PO (11:27)
[2019-05-04] MEDS ORDERED: HEParin 1000 UNIT/ML (10ML VIAL) FOR BOLUS ONE (13:43)
[2019-05-04] MEDS ORDERED: fentaNYL INJECTION 100 MCG/2 ML AMP ONE (13:43)
[2019-05-04] MEDS ORDERED: MIDAZOLAM 5 MG/5 ML (VERSED) VIAL ONE (13:43)
--- NOTE | 2019-05-04 13:53 | Cardiac Procedure Note-CS/ASA ---
Pre-Procedure Note Pre-Op Procedure Note H&P Reviewed The H&P was reviewed, patient examined and no changes noted. Date H&P Reviewed: May 04, 2019 Time H&P Reviewed: 13:53 Conscious Sedation Pre-Proced Time 13:53 ASA Score 3 For ASA 3 and 4: Consider anesthesia and medical clearance. Also, for patients with a history of failed moderate sedation consider anesthesia. Airway Lungs Heart ASA score ASA 1: a normal healthy patient ASA 2: a patient with a mild systemic disease (mid diabetes, controlled hypertension, obesity ASA 3: a patient with a severe systemic disease that limits activity (angina, COPD, prior Myocardial infarction) ASA 4: a patient with an incapacitating disease that is a constant threat to life (CHF, renal failure) ASA 5: a moribund patient not expected to survive 24 hrs. (ruptured aneurysm) ASA 6: a declared brain- patient whose organs are being harvested. For emergent operations, add the letter E after the classification Mallampati Classification Grade 2 Sedation Plan Analgesia, Amnesia, Plan communicated to team members, Discussed options with patient/fam, Discussed risks with patient/fam The patient is an appropriate candidate to undergo the planned procedure, sedation, and anesthesia. The patient immediately re-assessed prior to indication. JUAREZ PRESCOTT MD FACP FAC CCDS May 04, 2019 13:53
--- NOTE | 2019-05-04 14:03 | NUR ---
SPOKE WITH PT WELL CALLING [facility] AND GOING THRU THE EXT MED HISTORY TO COMPLETE THE MED REC. PT WAS ABLE TO TELL ME ALL HER MEDICATIONS WELL HOW/WHEN SHE TAKES THEM. THE FOLLOWING ARE FILL DATES FROM HER PHARMACIES: 04-14-2019 DULOXETINE #60/30DS 04-14-2019 GABAPENTIN #90/30DS 04-27-2019 METOPROLOL TART #60/30DS 04-27-2019 LORAZEPAM #8/3DS 04-29-2019 CLONIDINE 0.1MG #56/28DS PT ALSO USES AN ALBUTEROL HFA PRN OTC MEDS: IBUPROFEN 200: 4 TABS Q 6 H PRN ASPIRIN 81M BID RANITIDINE 150M DAILY Addendum: 05/04/19 at 1415 by SHEELA KENDRICK CPhT PLEASE NOT THE FOLLOWING MEDS WERE ON THE PATIENTS EXT MED HISTORY BUT SHE IS NOT TAKING THEM: DOXEPIN MIRTAZAPINE BUSPIRONE
[2019-05-04] MEDS ORDERED: diphenhydrAMINE 50 MG/ML INJ (BENADRYL) ONE (14:10)
[2019-05-04] MEDS ORDERED: PATIENT MAY USE OWN MEDS, ALL PO SCH (15:00)
--- NOTE | 2019-05-04 15:01 | Discharge Inst-Cardiology ---
Discharge Inst-Cardiac Discharge Medications Continued Medications: Albuterol Sulfate (Proair Hfa) 1 Puff Puff 2 PUFF IH Q4H PRN for SHORTNESS OF BREATH, PUFF 1 PUFF = 90 MCG Aspirin (Aspirin EC) 81 Mg Tablet.dr 81 MG PO BID, TAB Clonidine HCl (Clonidine HCl) 0.1 Mg Tablet 0.1 MG PO BID, TAB Duloxetine HCl (Cymbalta) 60 Mg Capsule.dr 60 MG PO BID, CAP Gabapentin (Gabapentin) 300 Mg Capsule 300 MG PO TID, CAP Lorazepam (Ativan) 1 Mg Tablet 1 MG PO Q8H PRN for ANXIETY for 3 Days, #8 TAB Metoprolol Tartrate (Metoprolol Tartrate) 50 Mg Tablet 50 MG PO BID for 30 Days, TAB Ranitidine HCl (Zantac) 150 Mg Tablet 150 MG PO DAILY, TAB Discontinued Medications: Ibuprofen (Ibuprofen) 200 Mg Tablet 800 MG PO Q6H PRN for PAIN-MILD, TAB JUAREZ PRESCOTT MD FACP FAC CCDS May 04, 2019 15:01
--- NOTE | 2019-05-04 15:02 | Discharge Inst-Post CATH ---
Discharge Inst-CATH/EP Post Cardiac Cath/EP D/C Inst Follow Up/Plan F/u with Dr Baltazar next week ACTIVITY * Go Home directly and rest. * Limit activity of the leg (or wrist if it was used) for 7 days including aerobics, swimming, jogging, bicycling, etc. * Restrict stair-climbing for 7 days if possible, if not, climb up with your no n-cath leg, then bring together on the same step. * Avoid lifting, pushing, pulling or excessive movement of the affected ext remity for 7 days. * Customary sexual activity may be resumed after 2 days-use caution not to use a position that strains or causes pain to the affected extremity. * No driving for 24 hours. * NO SMOKING. * Avoid straining for bowel movements for 7 days. * Gentle walking on level ground is allowed. * Returning to work will depend on the type of procedure and the results. Your doctor will discuss this with you. CALL YOUR DOCTOR FOR ANY OF THE FOLLOWING: *If bleeding from the puncture site occurs- Apply gentle pressure to site with clean cloth and call your doctor or EMS. * If a knot or lump forms under the skin, increases in size, or causes pain. * If bruising appears to be worsening or moving further down your leg instead of disappearing. * Temperature above 101 F. CARE OF YOUR GROIN INCISION; * Bruising or purple discoloration of the skin near the puncture site is common. * You may shower only, no bathtub bathing for 5 days. Be careful to avoid slipping as your leg may feel stiff. * If a closure device was used on your femoral artery, please see the attached guide regarding care of the device and your leg. * Leave dressing on FOR 24 hours. CARE OF YOUR WRIST INCISION; * Bruising or purple discoloration of the skin near the puncture site is common. * You may shower. * DO NOT submerge wrist. * Leave dressing on FOR 24 hours. J[facility]Z [facility]ZAR MD [facility] F[facility] CCDS May 04, 2019 15:02
--- NOTE | 2019-05-04 16:48 | CARDIAC CATHETERIZATION ---
DATE OF SERVICE: 05/04/2019 CARDIAC CATHETERIZATION REPORT The patient is a 48-year-old lady, who has history of palpitations and syncope. These are chronic symptoms. She has had daily episodes of these. Lately, she has had some chest discomfort and also has exertional shortness of breath, which has been somewhat worse than before. Cardiac catheterization was carried out today after having obtained an informed consent. PROCEDURE: She was brought to the cardiac catheterization laboratory in a fasting state. Right groin was prepared and draped in the usual sterile fashion. Lidocaine 1% was used for local anesthesia. Modified Seldinger technique was used to advance a 5-Italian sheath in right femoral artery, a 5-Italian JL4 catheter for left coronary angiography, a 5-Italian JR4 catheter for right coronary angiography, a 5-Italian pigtail catheter was used for left heart catheterization and left ventricular angiography and aortic root angiography. Angiography of the right femoral artery was carried out through the sheath. Mynx was used to achieve hemostasis. She tolerated the procedure well. HEMODYNAMICS: Left ventricular end-diastolic pressure following coronary angiography was 6 mmHg. There is no significant pressure gradient on pullback across the aortic valve. Ascending aortic pressure was 117/73 with a mean of 94 mmHg. CORONARY ANGIOGRAPHY: Left main coronary artery is free of significant disease. Left anterior descending artery is occluded in its midportion following the first septal mule operator. This is a flush occlusion. The entire left anterior descending artery distal to this occlusion is reconstituted by collaterals from the right coronary artery, specifically the posterior descending branch of the right coronary artery. The left circumflex artery does not exhibit significant disease. Right coronary artery is dominant and does not exhibit significant disease and it reconstitutes the mid and distal left anterior descending artery via collaterals. AORTIC ROOT ANGIOGRAPHY: No significant aortic regurgitation, no significant aortic root enlargement, no anomalous vessels seen LEFT VENTRICULAR ANGIOGRAPHY: Left ventricular angiography was carried out in the right anterior oblique projection. Global left ventricular systolic function is normal. No distinct regional wall motion abnormality is seen in this view. Left ventricular ejection fraction is estimated to be 55 to 60%. CONCLUSIONS: 1. 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 Distal left anterior descending artery is reconstituted by right coronary artery collaterals, specifically the posterior descending branch of the right coronary artery. 2. Well-preserved global left ventricular systolic function with an ejection fraction of 60 to 65%. 3. Normal left ventricular end-diastolic pressure. DISCUSSION AND RECOMMENDATIONS: Based on the results of the study, it appears appropriate to continue a conservative approach. We will discuss with her the option of intervention to chronic total occlusion and we will consider that if she so desires. Currently, this appears to be a chronic situation, which is well compensated for. Job ID: [id number] DocumentID: [id number] Dictated Date: 05/04/2019 14:38:16 Culinary Specialist Date: 05/04/2019 16:47:39 Dictated By: JUAREZ PRESCOTT MD, MA, FACP, FACC, MTDD
--- NOTE | 2019-05-04 16:55 | CARDIAC CATHETERIZATION ---
DATE OF SERVICE: 05/04/2019 CARDIAC CATHETERIZATION REPORT The patient is a 48-year-old lady, who has history of palpitations and syncope. These are chronic symptoms. She has had daily episodes of these. Lately, she has had some chest discomfort and also has exertional shortness of breath, which has been somewhat worse than before. Cardiac catheterization was carried out today after having obtained an informed consent. PROCEDURE: She was brought to the cardiac catheterization laboratory in a fasting state. Right groin was prepared and draped in the usual sterile fashion. Lidocaine 1% was used for local anesthesia. Modified Seldinger technique was used to advance a 5-Luxembourger sheath in right femoral artery, a 5-Luxembourger JL4 catheter for left coronary angiography, a 5-Luxembourger JR4 catheter for right coronary angiography, a 5-Luxembourger pigtail catheter was used for left heart catheterization and left ventricular angiography and aortic root angiography. Angiography of the right femoral artery was carried out through the sheath. Mynx was used to achieve hemostasis. She tolerated the procedure well. HEMODYNAMICS: Left ventricular end-diastolic pressure following coronary angiography was 6 mmHg. There is no significant pressure gradient on pullback across the aortic valve. Ascending aortic pressure was 117/73 with a mean of 94 mmHg. CORONARY ANGIOGRAPHY: Left main coronary artery is free of significant disease. Left anterior descending artery is occluded in its midportion following the first septal environmental technology professor. This is a flush occlusion. The entire left anterior descending artery distal to this occlusion is reconstituted by collaterals from the right coronary artery, specifically the posterior descending branch of the right coronary artery. The left circumflex artery does not exhibit significant disease. Right coronary artery is dominant and does not exhibit significant disease and it reconstitutes the mid and distal left anterior descending artery via collaterals. AORTIC ROOT ANGIOGRAPHY: No significant aortic regurgitation, no significant aortic root enlargement, no anomalous vessels seen LEFT VENTRICULAR ANGIOGRAPHY: Left ventricular angiography was carried out in the right anterior oblique projection. Global left ventricular systolic function is normal. No distinct regional wall motion abnormality is seen in this view. Left ventricular ejection fraction is estimated to be 55 to 60%. CONCLUSIONS: 1. 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 Distal left anterior descending artery is reconstituted by right coronary artery collaterals, specifically the posterior descending branch of the right coronary artery. 2. Well-preserved global left ventricular systolic function with an ejection fraction of 60 to 65%. 3. Normal left ventricular end-diastolic pressure. DISCUSSION AND RECOMMENDATIONS: Based on the results of the study, it appears appropriate to continue a conservative approach. We will discuss with her the option of intervention to chronic total occlusion and we will consider that if she so desires. Currently, this appears to be a chronic situation, which is well compensated for. Job ID: [id number] DocumentID: [id number] Dictated Date: 05/04/2019 14:43:44 [address] Reporter Date: 05/04/2019 16:53:58 Dictated By: JUAREZ PRESCOTT MD, MA, FACP, FACC, MTDD
== END 2019-05-04 18:15 | disposition home or self-care (01) ==
LOC: CATH 10:13
PROVIDERS: ATTEND Internal Medicine Cardiovascular Disease
DX: I25.10 Atherosclerotic heart disease of native coronary artery without angina pectoris (principal); E66.9 Obesity, unspecified; Z68.32 Body mass index [BMI] 32.0-32.9, adult; F33.2 Major depressive disorder, recurrent severe without psychotic features; F41.9 Anxiety disorder, unspecified; Z83.3 Family history of diabetes mellitus; Z82.49 Family history of ischemic heart disease and other diseases of the circulatory system; Z80.9 Family history of malignant neoplasm, unspecified; Z82.62 Family history of osteoporosis; Z90.710 Acquired absence of both cervix and uterus; Z82.3 Family history of stroke; Z88.2 Allergy status to sulfonamides; Z88.1 Allergy status to other antibiotic agents; Z79.52 Long term (current) use of systemic steroids; Z79.891 Long term (current) use of opiate analgesic; Z79.899 Other long term (current) drug therapy
CPT/HCPCS: 36415; 80053; 80061; 85027; 85610; 85730; 87081; 93458; 93567

== ENCOUNTER → 2019-05-14 | Outpatient (CLI) | payer MEDICAID ==
[~2019-05-14] MED LIST changes: +ASPI-983 PO; +CLON0.1T PO; +DULO60CA6 PO; +GABA-488 PO; +IBUP-2055 PO; +RANI-613 PO; +RT-ALBUINH IH
--- NOTE | 2019-05-14 14:19 | Diagnostic Imaging Report ---
PROCEDURE: MRI lumbar spine. TECHNIQUE: Multiplanar, multisequence MRI of the lumbar spine was performed without contrast. INDICATION: Low back pain. COMPARISON: No prior studies are available for comparison. FINDINGS: Curvature and alignment of the lumbar spine is normal. Vertebral body heights and marrow signal are unremarkable. There is a hemangiolipoma within the L3 vertebral body. No other marrow lesions are seen. There is no compression fracture identified. There is generalized degenerative disc disease with variable disc space narrowing and desiccation. The conus is unremarkable at the T12-L1 level. T12-L1: Central canal and neural foramina are widely patent. L1-L2: Endplate osteophyte indents the ventral thecal sac but central canal is widely patent. Neural foramina are widely patent. L2-L3: Broad-based disc/osteophyte complex indents the ventral thecal sac but no significant central canal narrowing is seen. There is a left posterolateral broad-based disc bulging resulting in mild to moderate narrowing of the left neural foramen. L3-L4: Broad-based right paramidline disc/osteophyte complex indents the ventral thecal sac. No significant central canal narrowing is seen. There is narrowing of the right lateral recess as well as mild narrowing of the right neural foramen. Left neural foramen is patent. L4-L5: Broad-based disc/osteophyte complex flattens the ventral thecal sac. There is narrowing of bilateral lateral recesses as well as mild narrowing of the neural foramina. Central canal appears to be patent. L5-S1: Central canal is widely patent. There is moderate right and mild left neural foraminal narrowing due to broad-based disc/osteophyte complex. Paraspinous tissues are unremarkable. IMPRESSION: Multilevel lumbar spondylosis with multilevel lateral recess and neural foraminal stenosis. No definite central canal stenosis is identified. Dictated by: Dictated on workstation # [id number]
== END ==
LOC: RAD 12:50
PROVIDERS: ATTEND Nurse Practitioner
DX: M48.061 Spinal stenosis, lumbar region without neurogenic claudication (principal); M47.26 Other spondylosis with radiculopathy, lumbar region
CPT/HCPCS: 72148

== ENCOUNTER → 2019-06-15 | Outpatient (CLI) | payer MEDICAID | LOC: CARD 08:45 | PROVIDERS: ATTEND Internal Medicine Cardiovascular Disease | DX: I35.1 Nonrheumatic aortic (valve) insufficiency (principal); I51.7 Cardiomegaly | CPT/HCPCS: 93225; 93226; 93306 ==

== ENCOUNTER 2022-03-11 08:08 | Inpatient (IN) | payer MEDICAID ==
[~2022-03-11] VITALS: Ht 167.7 cm; Wt 91.6 kg
[~2022-03-11 08:08] MED LIST changes: +ASPI-1238 PO; -ASPI-983 PO; +CLN.1T PO; -CLON0.1T PO; -DULO60CA6 PO; +DULO60CA7 PO; -IBUP-2055 PO; +IBUP-2473 PO
[2022-03-11] MEDS ORDERED: morphine INJ 10 MG/ML 1ML (SYR OR VIAL) IVP STA (08:26)
[2022-03-11] MEDS ORDERED: ONDANSETRON 4 MG/2 ML (SDV) Z0FRAN IVP ONE (08:30)
--- NOTE | 2022-03-11 08:30 | ED Abdominal Pain ---
General Chief Complaint: Abdominal/GI Problems Stated Complaint: ABD PAIN Source of Information: Patient Exam Limitations: No Limitations History of Present Illness Date Seen by Provider: Mar 11, 2022 Time Seen by Provider: 08:11 Initial Comments 51-year-old female with past medical history of hypertension and prior kidney stones coming in due to right lower quadrant abdominal pain. Started last night, is constant, sharp, nothing seems to make better or worse. Took Tylenol which helped a little bit. Has associated nausea but no vomiting. She says this feels similar to the last time she had a kidney stone. She denies any dysuria, hematuria, chest pain, shortness of breath, fever, weakness, numbness, rash, vaginal bleeding, vaginal discharge, or any other concerns. She has had a complete hysterectomy. She had a normal bowel movement yesterday. Allergies and Home Medications Allergies Coded Allergies: sulfamethoxazole (Verified Allergy, Unknown, 04/27/19) trimethoprim (Verified Allergy, Unknown, 04/27/19) Patient Home Medication List Home Medication List Reviewed: Yes Albuterol Sulfate (Proair Hfa) 1 Puff Puff, 2 PUFF IH Q4H PRN for SHORTNESS OF BREATH, (Reported) Entered as Reported by: SHEELA KENDRICK on 05/04/191126 Aspirin (Aspirin EC) 81 Mg Tablet.dr, 81 MG PO BID, (Reported) Entered as Reported by: SHEELA KENDRICK on 05/04/191126 Clonidine HCl (Clonidine HCl) 0.1 Mg Tablet, 0.1 MG PO BID, (Reported) Entered as Reported by: SHEELA KENDRICK on 05/04/191126 Duloxetine HCl (Cymbalta) 60 Mg Capsule.dr, 60 MG PO BID, (Reported) Entered as Reported by: SHEELA KENDRICK on 05/04/191126 Gabapentin (Gabapentin) 300 Mg Capsule, 300 MG PO TID, (Reported) Entered as Reported by: SHEELA KENDRICK on 05/04/191126 Lorazepam (Ativan) 1 Mg Tablet, 1 MG PO Q8H PRN for ANXIETY Prescribed by: JULIETA IVAN on 04/27/191416 Metoprolol Tartrate (Metoprolol Tartrate) 50 Mg Tablet, 50 MG PO BID Prescribed by: JULIETA IVAN on 04/27/191416 Ranitidine HCl (Zantac) 150 Mg Tablet, 150 MG PO DAILY, (Reported) Entered as Reported by: SHEELA KENDRICK on 05/04/19 1127 Review of Systems Review of Systems Constitutional: No fever EENTM: No Blurred Vision Respiratory: Denies Cough Gastrointestinal: Abdominal Pain, Nausea; Denies Vomiting Musculoskeletal: no symptoms reported Skin: no symptoms reported Psychiatric/Neurological: No Symptoms Reported Endocrine: No Symptoms Reported Hematologic/Lymphatic: No Symptoms Reported All Other Systems Reviewed Negative Unless Noted: Yes Past Aioepsy-Vwyced-Wolnev Hx Patient Social History Tobacco Use?: No Immunizations Up To Date Tetanus Booster (TDap): Less than 5yrs PED Vaccines UTD: Yes Seasonal Allergies Seasonal Allergies: No Past Medical History Surgeries: Yes Eye Surgery, Hysterectomy Respiratory: Yes Asthma Currently Using CPAP: No Currently Using BIPAP: No Cardiac: Yes Hypertension Neurological: No Reproductive Disorders: Yes [employer]IAN History: Hysterectomy Sexually Transmitted Disease: No Genitourinary: Yes Gastrointestinal: No Musculoskeletal: No Rheumatoid Arthritis Endocrine: No HEENT: No Cancer: No Psychosocial: Yes Depression Integumentary: No Blood Disorders: Yes Family Medical History No Pertinent Family Hx Physical Exam Vital Signs Vital Signs - First Documented 03/11/22 08:16 Temp 36.5 Pulse 95 Resp 16 B/P (MAP) 163/95 (117) O2 Delivery Room Air Capillary Refill : Height/Weight/BMI Height: 5'6.00" Weight: 210lbs. oz. 95.670633hw; 32.79 BMI Method:Stated General Appearance: WD/WN, mild distress HEENT: PERRL/EOMI, normal ENT inspection, pharynx normal Neck: non-tender, full range of motion, supple, normal inspection Respiratory: chest non-tender, lungs clear, normal breath sounds, no respirat ory distress, no accessory muscle use Cardiovascular: regular rate, rhythm, no edema, no murmur Gastrointestinal: normal bowel sounds, soft; No distended, No guarding, No rebound; tenderness (global, RLQ worse than left) Extremities: normal range of motion, non-tender, normal inspection, no pedal edema, no calf tenderness, normal capillary refill Back: normal inspection, no vertebral tenderness, CVA tenderness (R) Neurologic/Psychiatric: no motor/sensory deficits, alert, normal mood/affect Skin: normal color, warm/dry Lymphatic: no adenopathy Progress/Results/Core Measures Results/Orders Lab Results Laboratory Tests Test 03/11/22 08:17 03/11/22 08:22 Range/Units Urine Color YELLOW Urine Clarity SL CLOUDY Urine pH 6.0 5-9 Urine Specific Reading <=1.005 1.016-1.022 Urine Protein NEGATIVE NEGATIVE Urine Glucose (UA) NEGATIVE NEGATIVE Urine Ketones NEGATIVE NEGATIVE Urine Nitrite NEGATIVE NEGATIVE Urine Bilirubin NEGATIVE NEGATIVE Urine Urobilinogen 0.2 < = 1.0 MG/DL Urine Leukocyte Esterase NEGATIVE NEGATIVE Urine RBC (Auto) NEGATIVE NEGATIVE Urine RBC NONE /HPF Urine WBC 0-2 /HPF Urine Squamous Epithelial Cells 0-2 /HPF Urine Crystals NONE /LPF Urine Bacteria TRACE /HPF Urine Casts NONE /LPF Urine Mucus NEGATIVE /LPF Urine Culture Indicated NO White Blood Count 10.4 4.3-11.0 10^3/uL Red Blood Count 3.97 3.80-5.11 10^6/uL Hemoglobin 11.5 11.5-16.0 g/dL Hematocrit 35 35-52 % Mean Corpuscular Volume 89 80-99 fL Mean Corpuscular Hemoglobin 29 25-34 pg Mean Corpuscular Hemoglobin Concent 33 32-36 g/dL Red Cell Distribution Width 13.4 10.0-14.5 % Platelet Count 308 130-400 10^3/uL Mean Platelet Volume 9.9 9.0-12.2 fL Immature Granulocyte % (Auto) 0 % Neutrophils (%) (Auto) 76 H 42-75 % Lymphocytes (%) (Auto) 17 12-44 % Monocytes (%) (Auto) 7 0-12 % Eosinophils (%) (Auto) 0 0-10 % Basophils (%) (Auto) 0 0-10 % Neutrophils # (Auto) 7.9 H 1.8-7.8 10^3/uL Lymphocytes # (Auto) 1.8 1.0-4.0 10^3/uL Monocytes # (Auto) 0.7 0.0-1.0 10^3/uL Eosinophils # (Auto) 0.0 0.0-0.3 10^3/uL Basophils # (Auto) 0.0 0.0-0.1 10^3/uL Immature Granulocyte # (Auto) 0.0 0.0-0.1 10^3/uL Sodium Level 137 135-145 MMOL/L Potassium Level 3.4 L 3.6-5.0 MMOL/L Chloride Level 99 98-107 MMOL/L Carbon Dioxide Level 26 21-32 MMOL/L Anion Gap 12 5-14 MMOL/L Blood Urea Nitrogen 6 L 7-18 MG/DL Creatinine 0.84 0.60-1.30 MG/DL Estimat Glomerular Filtration Rate 84 BUN/Creatinine Ratio 7 Glucose Level 123 H 70-105 MG/DL Calcium Level 9.4 8.5-10.1 MG/DL Corrected Calcium 9.2 8.5-10.1 MG/DL Total Bilirubin 0.7 0.1-1.0 MG/DL Aspartate Amino Transf (AST/SGOT) 12 5-34 U/L Alanine Aminotransferase (ALT/SGPT) 6 0-55 U/L Alkaline Phosphatase 103 40-136 U/L C-Reactive Protein 21.25 H <0.50 MG/DL Total Protein 7.3 6.4-8.2 GM/DL Albumin 4.3 3.2-4.5 GM/DL Lipase 14 8-78 U/L My Orders Orders - SUNDAR YEE MD Ct Abd/Pelv W (Appendicitis) (03/11/22 08:26) Cbc With Automated Diff (03/11/22 08:26) Comprehensive Metabolic Panel (03/11/22 08:26) Lipase (03/11/22 08:26) Ua Culture If Indicated (03/11/22 08:26) Crp Fs (03/11/22 08:26) Ondansetron Injection (Zofran Injectio (03/11/22 08:30) Morphine Injection (Morphine Injection (03/11/22 08:26) Ed Iv/Invasive Line Start (03/11/22 08:32) Iohexol Injection (Omnipaque 350 Mg/Ml 1 (03/11/22 08:45) Received Contrast (Hold Metformin- Contr (03/11/22 08:45) Ns (Ivpb) (Sodium Chloride 0.9% Ivpb Bag (03/11/22 08:45) Piperacillin Sodium/Tazobactam (Zosyn Vi (03/11/22 09:30) Hydromorphone Injection (Dilaudid Inject (03/11/22 09:45) Medications Given in ED Current Medications Medications Dose Ordered Sig/Charlie Route Start Time Stop Time Status Last Admin Dose Admin Iohexol 100 ml ONCE ONCE IV 03/11/22 08:45 03/11/22 08:46 DC 03/11/22 08:55 100 ML Ondansetron HCl 4 mg ONCE ONCE IVP 03/11/22 08:30 03/11/22 08:31 DC 03/11/22 08:33 4 MG Piperacillin Sod/ Tazobactam Sod 4.5 gm/Sodium Chloride 100 ml @ 200 mls/hr ONCE ONCE IV 03/11/22 09:30 03/11/22 09:59 03/11/22 09:24 200 MLS/HR Sodium Chloride 100 ml ONCE ONCE IV 03/11/22 08:45 03/11/22 08:46 DC 03/11/22 08:55 100 ML Vital Signs/I&O 03/11/22 08:16 Temp 36.5 Pulse 95 Resp 16 B/P (MAP) 163/95 (117) O2 Delivery Room Air Progress Progress Note : Progress Note 51-year-old female coming in due to abdominal pain. ABCs were intact and vitals were stable on presentation. Physical exam with right lower quadrant pain worse than the left. An IV was placed and basic labs were obtained including inflammatory markers. She was given morphine for pain and Zofran for nausea. White count normal, CRP elevated, urinalysis without concerns for infection. CT abdomen pelvis concerning for perforated appendicitis. I contacted Dr. Contreras and the patient will be admitted to his service for further evaluation and management. She was given IV Zosyn. Diagnostic Imaging Diagonstic Imaging: CT (abd/pelvis) Comments [facility] [place], [place] NAME: DAMION JIMENEZ [facility]ovanny [facility] REC#: [id number] PT STATUS: REG ER : 1970 PHYSICIAN: SUNDAR YEE MD ADMIT DATE: 03/11/22/ER FS Draft Date of Exam:03/11/22 CT ABD/PELV W (APPENDICITIS) PROCEDURE: CT abdomen and pelvis with contrast, rule out appendicitis. TECHNIQUE: Multiple contiguous axial images were obtained through the abdomen and pelvis after the administration of intravenous contrast. All CT scans use one or more of the following dose optimizing techniques: automated exposure control, MA and/or KvP adjustment based on patient size and exam type or iterative reconstruction. INDICATION: Right lower quadrant pain and nausea. No prior studies are available for comparison. Imaging through the lung bases demonstrates some linear scarring or atelectasis bilateral lower lobes. The liver demonstrates some mild generalized low attenuation consistent with hepatic steatosis. Tiny low-attenuation lesion in the inferior right lobe of liver is noted, too small to characterize but likely a small cyst. There is a calcified granuloma adjacent to the gallbladder in the gallbladder fossa. Gallbladder is unremarkable. No biliary ductal dilatation. Pancreas and spleen are unremarkable. No adrenal mass is detected. Kidneys are unremarkable. Aorta is nonaneurysmal. There is marked inflammatory changes identified in the right lower quadrant of the abdomen. The appendix appears to be significantly abnormal. There are significant wall thickening and surrounding inflammation. There is a tiny adjacent fluid collection and features are suggestive of a perforated appendicitis. There is a small amount of free fluid in the right lower quadrant as well. No definite bowel obstruction is seen. Bladder and uterus are unremarkable. IMPRESSION: There is marked inflammatory changes in the right lower quadrant, as described. Features are suggestive of a perforated acute appendicitis. Appendix does appear to be significantly irregular and thick walled the possibility of an appendiceal neoplasm cannot be entirely excluded. Called to Sonal at 9:13 a.m. by jarrett. Dictated on workstation # [id number] Dict: 03/11/22 0901 Trans: 03/11/2215 CVB [id number] Interpreted by: KEILY JENKINS MD Electronically signed by: Departure Impression Primary Impression: Acute appendicitis Qualified Codes: K35.20 - Acute appendicitis with generalized peritonitis, without abscess Disposition: 30 STILL A PATIENT Condition: Stable Admissions Decision to Admit Reason: Admit from ER (General) Decision to Admit/Date: Mar 11, 2022 Time/Decision to Admit Time: 09:25 Transfer Method of Transfer: Private Vehicle Departure-Patient Inst. Referrals: ALTHEA ACOSTA (PCP) Primary Care Physician NO,LOCAL PHYSICIAN (Family) Primary Care Physician SUNDAR YEE MD Mar 11, 2022 08:30
[2022-03-11 08:32] LABS: BASOPHILS % (AUTO) 0 % (0-10); EOSINOPHILS % (AUTO) 0 % (0-10); HEMATOCRIT 35 % (35-52); HEMOGLOBIN 11.5 g/dL (11.5-16.0); LYMPHOCYTES # (AUTO) 1.8 10^3/uL (1.0-4.0); LYMPHOCYTES % (AUTO) 17 % (12-44); MEAN CORPUSCULAR HEMOGLOBIN 29 pg (25-34); MEAN CORPUSCULAR HGB CONC 33 g/dL (32-36); MEAN CORPUSCULAR VOLUME 89 fL (80-99); MEAN PLATELET VOLUME 9.9 fL (9.0-12.2); MONOCYTES # (AUTO) 0.7 10^3/uL (0.0-1.0); MONOCYTES % (AUTO) 7 % (0-12); NEUTROPHILS # (AUTO) 7.9 10^3/uL (1.8-7.8); NEUTROPHILS % (AUTO) 76 % (42-75); PLATELET COUNT 308 10^3/uL (130-400); WHITE BLOOD COUNT 10.4 10^3/uL (4.3-11.0)
[2022-03-11 08:33] LABS: BILIRUBIN,URINE NEGATIVE (NEGATIVE); CLARITY,URINE SL CLOUDY; COLOR,URINE YELLOW; GLUCOSE, URINE (UA) NEGATIVE (NEGATIVE); KETONES,URINE NEGATIVE (NEGATIVE); LEUKOCYTE ESTERASE ,URINE NEGATIVE (NEGATIVE); NITRITE,URINE NEGATIVE (NEGATIVE); PROTEIN,URINE NEGATIVE (NEGATIVE)
[2022-03-11 08:39] LABS: BACTERIA,URINE TRACE /HPF; SQUAMOUS EPITHELIAL CELL,UR 0-2 /HPF; WBC,URINE 0-2 /HPF
[2022-03-11] MEDS ORDERED: IOHEXOL 350 MG/ML 100 ML (OMNIPAQUE 350) VIAL IV ONE (08:45)
[2022-03-11] MEDS ORDERED: HOLD METFORMIN - RECEIVED CONTRAST 20 ML VIAL IV SCH (08:45)
[2022-03-11] MEDS ORDERED: NS 100 ML (IVPB) BAG IV ONE (08:45)
[2022-03-11 08:52] LABS: CREATININE SERUM 0.84 MG/DL (0.60-1.30); POTASSIUM 3.4 MMOL/L (3.6-5.0)
[2022-03-11 08:53] LABS: ALBUMIN 4.3 GM/DL (3.2-4.5); BILIRUBIN,TOTAL 0.7 MG/DL (0.1-1.0); CALCIUM 9.4 MG/DL (8.5-10.1); TOTAL PROTEIN 7.3 GM/DL (6.4-8.2)
--- NOTE | 2022-03-11 09:15 | Diagnostic Imaging Report ---
PROCEDURE: CT abdomen and pelvis with contrast, rule out appendicitis. TECHNIQUE: Multiple contiguous axial images were obtained through the abdomen and pelvis after the administration of intravenous contrast. All CT scans use one or more of the following dose optimizing techniques: automated exposure control, MA and/or KvP adjustment based on patient size and exam type or iterative reconstruction. INDICATION: Right lower quadrant pain and nausea. No prior studies are available for comparison. Imaging through the lung bases demonstrates some linear scarring or atelectasis bilateral lower lobes. The liver demonstrates some mild generalized low attenuation consistent with hepatic steatosis. Tiny low-attenuation lesion in the inferior right lobe of liver is noted, too small to characterize but likely a small cyst. There is a calcified granuloma adjacent to the gallbladder in the gallbladder fossa. Gallbladder is unremarkable. No biliary ductal dilatation. Pancreas and spleen are unremarkable. No adrenal mass is detected. Kidneys are unremarkable. Aorta is nonaneurysmal. There is marked inflammatory changes identified in the right lower quadrant of the abdomen. The appendix appears to be significantly abnormal. There are significant wall thickening and surrounding inflammation. There is a tiny adjacent fluid collection and features are suggestive of a perforated appendicitis. There is a small amount of free fluid in the right lower quadrant as well. No definite bowel obstruction is seen. Bladder and uterus are unremarkable. IMPRESSION: There is marked inflammatory changes in the right lower quadrant, as described. Features are suggestive of a perforated acute appendicitis. Appendix does appear to be significantly irregular and thick walled the possibility of an appendiceal neoplasm cannot be entirely excluded. Called to Sonal at 9:13 a.m. by jarrett. Dictated by: Dictated on workstation # [id number]
[2022-03-11] MEDS ORDERED: NS IV 1000 ML 1,000 ML IV STA (09:17)
[2022-03-11] MEDS ORDERED: PIPERACILLIN SODIUM/TAZOBACTAM 4.5 GM in NS (IVPB) 100 ML IV ONE (09:30)
[2022-03-11] MEDS ORDERED: HYDROmorphone 2 MG/ML VIAL (DILAUDID) IV ONE (09:45)
[2022-03-11 11:25] VITALS: BP 117/71
[2022-03-11] MEDS: fentaNYL INJ 100 MCG/2 ML AMP IV PRN ×2 (11:59→13:16)
--- NOTE | 2022-03-11 11:59 | History & Physical-Surgical ---
SAL LAWRENCE 03/11/22 1159: History of Present Illness History of Present Illness Reason for visit/HPI Appendiceal Perforation Date of Admission Mar 11, 2022 at 11:12 Date Seen by a Provider: Mar 11, 2022 Time Seen by a Provider: 11:51 I consulted on this patient on 03/11/22 11:51 Attending Physician Maria G De Luna Admitting Physician Admitting Physician: Jyothi Gomez DO Attending Physician: Jyothi Gomez DO Consult 51yo Female presents from emergency department with sharp, constant RLQ abd pain that started yesterday. Pt rates that pain a 9/10 at its worst. Pt states that she pain radiates diffusely across abdomen with movement and has some pain relief if she lay stills. Pt says that she did not take any medication prior to coming to the ED for pain but states that she was given morphine in the ED and her pain is now a 7/10. Pt's last BM was last night. Pt has associated nausea but denies vomiting, CP, shortness of breath, sweats, and diarrhea. Pt had a CT of the abd/pelvis on 03/11 that showed marked inflammatory changes in the right lower quadrant that are suggestive of a perforated acute appendicitis. The appendix did not appear to have significant irregular or thick junior and the possibility of an appendiceal neoplasm cannot be entirely excluded. Allergies and Home Medications Allergies Coded Allergies: sulfamethoxazole (Verified Allergy, Unknown, SOB and hives, 03/11/22) trimethoprim (Verified Allergy, Unknown, SOB and hives, 03/11/22) Patient Home Medication List Home Medication List Reviewed: Yes Acetaminophen (Tylenol Extra Strength) 500 Mg Tablet, 1,500 MG PO Q8H PRN for PAIN-MILD (1-4), (Reported) Entered as Reported by: AUDRA ARREGUIN on 03/11/22 1556 Last Action: Reviewed Albuterol Sulfate (Proair Hfa) 1 Puff Puff, 2 PUFF IH Q4H PRN for SHORTNESS OF BREATH, (Reported) Entered as Reported by: SHEELA KENDRICK on 05/04/19 1127 Last Action: Reviewed Alprazolam (Alprazolam) 0.5 Mg Tablet, 0.5 MG PO HS, (Reported) Entered as Reported by: AUDRA ARREGUIN on 8/22/22 1549 Last Action: Reviewed Aspirin (Aspirin EC) 81 Mg Tablet.dr, 81 MG PO DAILY, (Reported) Entered as Reported by: SHEELA KENDRICK on 05/04/191126 Last Action: Reviewed Brexpiprazole (Rexulti) 0.5 Mg Tablet, 0.5 MG PO 1800, (Reported) Entered as Reported by: AUDRA ARREGUIN on 03/11/221548 Last Action: Reviewed Clonidine HCl (Clonidine HCl) 0.1 Mg Tablet, 0.2 MG PO HS, (Reported) Entered as Reported by: SHEELA KENDRICK on 05/04/191126 Last Action: Reviewed Diclofenac Sodium (Voltaren Arthritis Pain) 1 % Gel..gram., 1 APPLIC TP DAILY PRN for PAIN-MILD (1-4), (Reported) Entered as Reported by: AUDRA ARREGUIN on 03/11/221555 Last Action: Reviewed Docusate Sodium (Stool Softener) 100 Mg Tablet, 100 MG PO DAILY PRN for CONSTIPATION-1ST LINE, (Reported) Entered as Reported by: AUDRA ARREGUIN on 03/11/221555 Last Action: Reviewed Duloxetine HCl (Cymbalta) 60 Mg Capsule.dr, 60 MG PO DAILY, (Reported) Entered as Reported by: SHEELA KENDRICK on 05/04/191126 Last Action: Reviewed Furosemide (Furosemide) 20 Mg Tablet, 20 MG PO DAILY, (Reported) Entered as Reported by: AUDRA ARREGUIN on 03/11/221551 Last Action: Reviewed Gabapentin (Gabapentin) 600 Mg Tablet, 1,200 MG PO TID, (Reported) Entered as Reported by: AUDRA ARREGUIN on 03/11/221547 Last Action: Reviewed Ibuprofen (Ibuprofen) 800 Mg Tablet, 800 MG PO TID PRN for PAIN-MILD (1-4), (Reported) Entered as Reported by: AUDRA ARREGUIN on 03/11/221551 Last Action: Reviewed Levothyroxine Sodium (Levothyroxine Sodium) 50 Mcg Tablet, 50 MCG PO DAILY, (Reported) Entered as Reported by: AUDRA ARREGUIN on 03/11/221551 Last Action: Reviewed Metoprolol Succinate (Metoprolol Succinate) 200 Mg Tab.er.24h, 200 MG PO BID, (Reported) Entered as Reported by: AUDRA ARREGUIN on 8/22/22 1548 Last Action: Reviewed Rosuvastatin Calcium (Rosuvastatin Calcium) 10 Mg Tablet, 10 MG PO 1800, (Repo rted) Entered as Reported by: AUDRA ARREGUIN on 03/11/221551 Last Action: Reviewed Tramadol HCl (Tramadol HCl) 50 Mg Tablet, 50 MG PO BID PRN for PAIN-MODERATE (5- 7), (Reported) Entered as Reported by: AUDRA ARREGUIN on 03/11/221551 Last Action: Reviewed Past Wmbkzgc-Jgxcya-Uzvixo Hx Patient Social History Tobacco Use?: No Smoking Status: Never a Smoker Smokeless Tobacco Frequency: Never a User Use of E-Cig and/or Vaping dev: No Substance use?: No Alcohol Use?: No Pt feels they are or have been: No Immunizations Up To Date PED Vaccines UTD: Yes Seasonal Allergies Seasonal Allergies: No Current Status status: No status: No Advance Directives: No Communicates: Verbally Primary Language: Bengali Preferred Spoken Language: Bengali Is interpretation needed?: No Sensory deficits: Vision impairment Implanted or Applied Medical D: None Past Medical History Surgeries: Hysterectomy Asthma Currently Using CPAP: No Currently Using BIPAP: No 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 Sexually Transmitted Disease: No Kidney Stones Rheumatoid Arthritis Blood Disorders: Yes Family Medical History Cardiovascular disease Diabetes mellitus Hypertension Neoplasm (uterine cancer, breast cancer) No Pertinent Family Hx Review of Systems Constitutional: No chills, No diaphoresis EENTM: No ear discharge, No hearing loss Respiratory: No cough, No dyspnea on exertion Cardiovascular: No chest pain, No edema Gastrointestinal: abdominal pain (RLQ and RUQ with guarding ); No diarrhea; nausea; No vomiting Genitourinary: No decreased output, No discharge Musculoskeletal: No gout, No joint pain Skin: No change in color, No change in hair/nails Psychiatric/Neurological: Denies Anxiety, Denies Depressed All Other Systems Reviewed Negative Unless Noted: Yes Physical Exam Vital Signs Vital Signs - First Documented 03/11/22 03/11/22 08:16 10:11 Temp 36.5 Pulse 95 Resp 16 B/P (MAP) 163/95 (117) Pulse Ox 98 O2 Delivery Room Air Capillary Refill : Less Than 3 Seconds Height, Weight, BMI Height: 5'6.00" Weight: 210lbs. oz. 95.322249nz; 34.00 BMI Method:Stated General Appearance: No Apparent Distress, WD/WN HEENT: PERRL/EOMI, Normal ENT Inspection Neck: Normal Inspection, Supple Respiratory: Normal Breath Sounds, No Accessory Muscle Use, No Respiratory Distress Cardiovascular: Regular Rate, Rhythm, No Murmur Gastrointestinal: Normal Bowel Sounds, Soft, Guarding (RUQ and RLQ), Tenderness (RUQ, RLQ, and L lumbar region) Back: Normal Inspection, No CVA Tenderness Extremity: Normal Inspection, Normal Range of Motion, No Pedal Edema Neurologic/Psychiatric: Alert, Normal Mood/Affect Skin: Normal Color, Warm/Dry Lymphatic: No Adenopathy Data Review Labs Laboratory Tests 03/11/22 08:17: Urine Color YELLOW, Urine Clarity SL CLOUDY, Urine pH 6.0, Urine Specific [place] <=1.005, Urine Protein NEGATIVE, Urine Glucose (UA) NEGATIVE, Urine Ketones NEGATIVE, Urine Nitrite NEGATIVE, Urine Bilirubin NEGATIVE, Urine Urobilinogen 0.2, Urine Leukocyte Esterase NEGATIVE, Urine RBC (Auto) NEGATIVE, Urine RBC NONE, Urine WBC 0-2, Urine Squamous Epithelial Cells 0-2, Urine Crystals NONE, Urine Bacteria TRACE, Urine Casts NONE, Urine Mucus NEGATIVE, Urine Culture Indicated NO 03/11/22 08:22: White Blood Count 10.4, Red Blood Count 3.97, Hemoglobin 11.5, Hematocrit 35, Mean Corpuscular Volume 89, Mean Corpuscular Hemoglobin 29, Mean Corpuscular Hemoglobin Concent 33, Red Cell Distribution Width 13.4, Platelet Count 308, Mean Platelet Volume 9.9, Immature Granulocyte % (Auto) 0, Neutrophils (%) (Auto) 76H, Lymphocytes (%) (Auto) 17, Monocytes (%) (Auto) 7, Eosinophils (%) (Auto) 0, Basophils (%) (Auto) 0, Neutrophils # (Auto) 7.9H, Lymphocytes # (Auto) 1.8, Monocytes # (Auto) 0.7, Eosinophils # (Auto) 0.0, Basophils # (Auto) 0.0, Immature Granulocyte # (Auto) 0.0, Sodium Level 137, Potassium Level 3.4L, Chloride Level 99, Carbon Dioxide Level 26, Anion Gap 12, Blood Urea Nitrogen 6L , Creatinine 0.84, Estimat Glomerular Filtration Rate 84, BUN/Creatinine Ratio 7, Glucose Level 123H, Calcium Level 9.4, Corrected Calcium 9.2, Total Bilirubin 0.7, Aspartate Amino Transf (AST/SGOT) 12, Alanine Aminotransferase (ALT/SGPT) 6, Alkaline Phosphatase 103, C-Reactive Protein 21.25H, Total Protein 7.3, Albumin 4.3, Lipase 14 Assessment/Plan Assessment/Plan Admission Diagonsis Appendiceal perforation Assessment/Plan Abd pain Nausea h/o kidney stones Pt's CT scan is indicative of appendiceal perforation- keep NPO IV fluids pain medication Abx Continue to monitor JYOTHI GOMEZ DO 03/11/222058: History of Present Illness History of Present Illness Reason for visit/HPI Chief complaint right lower quadrant abdominal pain. Patient 51-year-old female who presented to the emergency department due to right lower quadrant abdominal pain that started yesterday. Patient states that he does not really radiate anywhere stays focally in the right lower quadrant. She states that she has movement pain moves all over though. Laying still makes it better. Moving makes it worse. [place] every bump in the road coming to the hospital. It is a sharp constant pain. She is not had any pain like this before. She has had some nausea no emesis. She denies any fever sweats chills shortness of breath or chest pain. Patient's never had a colonoscopy to date. Patient CT scan showing significant phonatory changes in the right lower quadrant this is suggestive of perforated acute appendicitis there is no free air there is an area that appears to be normal appendix ankle but question the area or an area that could be the appendix versus phlegmon with early abscess. Questioning if this is a cecal process. I did discuss this with Dr. Tadeo as well. Allergies and Home Medications Allergies Coded Allergies: sulfamethoxazole (Verified Allergy, Unknown, SOB and hives, 03/11/22) trimethoprim (Verified Allergy, Unknown, SOB and hives, 03/11/22) Patient Home Medication List Home Medication List Reviewed: Yes Acetaminophen (Tylenol Extra Strength) 500 Mg Tablet, 1,500 MG PO Q8H PRN for PAIN-MILD (1-4), (Reported) Entered as Reported by: AUDRA ARREGUIN on 03/11/22 5138 Last Action: Reviewed Albuterol Sulfate (Proair Hfa) 1 Puff Puff, 2 PUFF IH Q4H PRN for SHORTNESS OF BREATH, (Reported) Entered as Reported by: SHEELA KENDRICK on 05/04/191126 Last Action: Reviewed Alprazolam (Alprazolam) 0.5 Mg Tablet, 0.5 MG PO HS, (Reported) Entered as Reported by: AUDRA ARREGUIN on 03/11/221548 Last Action: Reviewed Aspirin (Aspirin EC) 81 Mg Tablet.dr, 81 MG PO DAILY, (Reported) Entered as Reported by: SHEELA KENDRICK on 05/04/191126 Last Action: Reviewed Brexpiprazole (Rexulti) 0.5 Mg Tablet, 0.5 MG PO 1800, (Reported) Entered as Reported by: AUDRA ARREGUIN on 03/11/221548 Last Action: Reviewed Clonidine HCl (Clonidine HCl) 0.1 Mg Tablet, 0.2 MG PO HS, (Reported) Entered as Reported by: SHEELA KENDRICK on 05/04/191126 Last Action: Reviewed Diclofenac Sodium (Voltaren Arthritis Pain) 1 % Gel..gram., 1 APPLIC TP DAILY PRN for PAIN-MILD (1-4), (Reported) Entered as Reported by: AUDRA ARREGUIN on 03/11/221555 Last Action: Reviewed Docusate Sodium (Stool Softener) 100 Mg Tablet, 100 MG PO DAILY PRN for CONSTIPATION-1ST LINE, (Reported) Entered as Reported by: AUDRA ARREGUIN on 03/11/221555 Last Action: Reviewed Duloxetine HCl (Cymbalta) 60 Mg Capsule.dr, 60 MG PO DAILY, (Reported) Entered as Reported by: SHEELA KENDRICK on 05/04/191126 Last Action: Reviewed Furosemide (Furosemide) 20 Mg Tablet, 20 MG PO DAILY, (Reported) Entered as Reported by: AUDRA ARREGUIN on 03/11/221551 Last Action: Reviewed Gabapentin (Gabapentin) 600 Mg Tablet, 1,200 MG PO TID, (Reported) Entered as Reported by: AUDRA ARREGUIN on 03/11/221547 Last Action: Reviewed Ibuprofen (Ibuprofen) 800 Mg Tablet, 800 MG PO TID PRN for PAIN-MILD (1-4), (Reported) Entered as Reported by: AUDRA ARREGUIN on 03/11/221551 Last Action: Reviewed Levothyroxine Sodium (Levothyroxine Sodium) 50 Mcg Tablet, 50 MCG PO DAILY, (Reported) Entered as Reported by: AUDRA ARREGUIN on 03/11/221551 Last Action: Reviewed Metoprolol Succinate (Metoprolol Succinate) 200 Mg Tab.er.24h, 200 MG PO BID, (Reported) Entered as Reported by: AUDRA ARREGUIN on 03/11/221547 Last Action: Reviewed Rosuvastatin Calcium (Rosuvastatin Calcium) 10 Mg Tablet, 10 MG PO 1800, (Reported) Entered as Reported by: AUDRA ARREGUIN on 03/11/221551 Last Action: Reviewed Tramadol HCl (Tramadol HCl) 50 Mg Tablet, 50 MG PO BID PRN for PAIN-MODERATE (5- 7), (Reported) Entered as Reported by: AUDRA ARREGUIN on 03/11/221551 Last Action: Reviewed Past Ktudyxi-Djpxmq-Bcldrk Hx Past Medical History Surgeries: Hysterectomy Kidney Stones Family Medical History Reviewed Nursing Family Hx Cardiovascular disease Diabetes mellitus Hypertension Neoplasm (uterine cancer, breast cancer) Review of Systems Constitutional: No chills, No diaphoresis EENTM: No hearing loss, No blurred vision, No double vision Respiratory: No cough, No dyspnea on exertion Cardiovascular: No chest pain, No edema Gastrointestinal: abdominal pain (RLQ); No diarrhea; nausea; No vomiting Genitourinary: No decreased output, No discharge Musculoskeletal: No gout, No joint pain Skin: No change in color, No change in hair/nails Psychiatric/Neurological: Denies Anxiety, Denies Depressed All Other Systems Reviewed Negative Unless Noted: Yes (Negative excepted noted.) Physical Exam General Appearance: No Apparent Distress, WD/WN HEENT: PERRL/EOMI, Normal ENT Inspection Neck: Normal Inspection, Supple Respiratory: Chest Non Tender, No Accessory Muscle Use, No Respiratory Distress Cardiovascular: Regular Rate, Rhythm, No JVD Gastrointestinal: Soft; No Distended; Guarding (Right lower quadrant voluntary guarding), Tenderness (RUQ, RLQ, and L lumbar region) Rectal: Deferred Back: Normal Inspection, No CVA Tenderness Extremity: Normal Inspection, Normal Range of Motion Neurologic/Psychiatric: Alert, Oriented x3, Normal Mood/Affect Skin: Normal Color, Warm/Dry Lymphatic: No Adenopathy Assessment/Plan Assessment/Plan Admission Diagonsis Right lower quadrant abdominal pain Nausea Appendiceal perforation versus cecal perforation possible early intraabdominal abscess Admission Status: Inpatient Order (span 2 midnights) Reason for Inpatient Admission: Patient needing IV fluids and IV antibiotics and will need surgical intervention time is listed in plan Assessment/Plan Right lower quadrant abdominal pain Nausea Appendiceal perforation versus cecal perforation possible early intraabdominal abscess Patient with significant phlegmon in the right lower quadrant difficult to asses s whether this is a perforated appendicitis versus a cecal perforation with phlegmon or even early abscess. Patient will be admitted will need IV antibiotics we will try to cool this area off and then perform diagnostic laparoscopy all other indicated procedures. We will likely do this Friday to give time for the phlegmon to cool off more. If any change in condition will would consider doing earlier. Patient is on Zosyn. Strict n.p.o. except for can have some meds p.o. IV fluids. Supervisory-Addendum Brief Verification & Attestation Participated in pt care: history, MDM, physical Personally performed: exam, history, MDM, supervision of care Care discussed with: Medical Student Procedures: n/a Results interpretation: Verified all documentation Verification and Attestation of Medical Student E/M Service A medical student performed and documented this service in my presence. I reviewed and verified all information documented by the medical student and made modifications to such information, when appropriate. I personally performed the physical exam and medical decision making. Jyothi Gomez, Mar 11, 2022,21:02 SAL LAWRENCE Mar 11, 2022 11:59 JYOTHI GOMEZ DO Mar 11, 2022 20:59
[2022-03-11] MEDS: NS IV 1000 ML 1,000 ML IV SCH ×2 (12:02→22:09)
[2022-03-11 13:44] VITALS: BP 117/71
[2022-03-11] MEDS: morphine INJ 4 MG/ML 1 ML (VIAL/SYRINGE) IV PRN ×4 (14:10→22:18)
--- NOTE | 2022-03-11 14:10 | Consultation - Hospitalist ---
HPI History of Present Illness: HPI/Chief Complaint Patient is a 51-year-old female with past medical history of hypertension who presented to the emergency department due to abdominal pain. She has a history of prior kidney stones and believes this felt similar. She took Tylenol at home with little to no improvement in her pain opting her to seek evaluation in the emergency department. In the ER a CT of her abdomen was done which revealed a possible appendiceal perforation. She was admitted to the surgery service for further management. I am consulted for medical management. She reports her only other concern right now is extreme anxiety about potential surgery and her daughter at home. She still does complain of pain and gets no relief from the fentanyl but morphine has been helping. Source: patient Date Seen 03/11/22 Attending Physician Maria G De Luna PCP Admitting Physician: Aleksandr Contreras DO Attending Physician: Aleksandr Contreras DO Referring Physician Date of Admission Mar 11, 2022 at 11:12 Home Medications & Allergies Home Medications Reviewed patient Home Medication Reconciliation performed by pharmacy medication reconciliations testing and regulating technician and/or nursing. Patients Allergies have been reviewed. Allergies Allergies Coded Allergies sulfamethoxazole (Verified Allergy, Unknown, 04/27/19) trimethoprim (Verified Allergy, Unknown, 04/27/19) Past Grjcuwi-Qpdfxf-Rxxjpf Hx Patient Social History Marrital Status: single Employed/Student: employed Tobacco Use?: No Smoking Status: Never a Smoker Smokeless Tobacco Frequency: Never a User Use of E-Cig and/or Vaping dev: No Substance use?: No Alcohol Use?: No Pt feels they are or have been: No Immunizations Up To Date Hepatitis A: No Hepatitis B: No PED Vaccines UTD: Yes Seasonal Allergies Seasonal Allergies: No Current Status status: No status: No Advance Directives: No Communicates: Verbally Primary Language: Salvadorean Preferred Spoken Language: Salvadorean Is interpretation needed?: No Sensory deficits: Vision impairment Implanted or Applied Medical D: None Past Medical History Surgeries: Section, Eye Surgery, Hysterectomy Asthma Currently Using CPAP: No Currently Using BIPAP: No 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 Sexually Transmitted Disease: No Kidney Stones Rheumatoid Arthritis Anxiety, Depression Blood Disorders: Yes Family Medical History Reviewed Nursing Family Hx Cardiovascular disease Diabetes mellitus Hypertension Neoplasm (uterine cancer, breast cancer) Review of Systems Constitutional: No chills, No fever EENTM: no symptoms reported Respiratory: no symptoms reported Cardiovascular: no symptoms reported Gastrointestinal: abdominal pain, nausea; No vomiting Genitourinary: no symptoms reported Musculoskeletal: no symptoms reported Skin: no symptoms reported Psychiatric/Neurological: No Symptoms Reported Physical Exam Physical Exam Vital Signs Vital Signs - First Documented 03/11/22 03/11/22 08:16 10:11 Temp 36.5 Pulse 95 Resp 16 B/P (MAP) 163/95 (117) Pulse Ox 98 O2 Delivery Room Air Capillary Refill : Less Than 3 Seconds Height, Weight, BMI Height: 5'6.00" Weight: 210lbs. oz. 95.600758ay; 32.57 BMI Method:Stated General Appearance: No Apparent Distress, WD/WN HEENT: PERRL/EOMI, Normal ENT Inspection Neck: Normal Inspection, Supple Respiratory: Normal Breath Sounds, No Accessory Muscle Use, No Respiratory Dist ress Cardiovascular: Regular Rate, Rhythm, No Murmur Gastrointestinal: Normal Bowel Sounds, Soft, Guarding (RUQ and RLQ), Tenderness (RUQ, RLQ, and L lumbar region) Back: Normal Inspection, No CVA Tenderness Extremity: Normal Inspection, Normal Range of Motion, No Pedal Edema Neurologic/Psychiatric: Alert, Normal Mood/Affect Skin: Normal Color, Warm/Dry Lymphatic: No Adenopathy Results Results/Procedures Labs Laboratory Tests 03/11/22 08:22 Patient resulted labs reviewed. Assessment/Plan Assessment and Plan Assess & Plan/Chief Complaint Appendiceal perforation CT read as appendiceal perf but surgery concerned for cecal perf No free air so planning for IV abx and awaiting surgery until inflammation has calmed Continue Zosyn Management per primary, surgery HTN BP elevated on arrival to the ER, improved now Trend IV hydralzine prn Depression and Anxiety Ativan intensol added for prn anxiety management as she is strictly NPO Resume Cymbalta DVT ppx: SCDs FRNATZ JONES MD Mar 11, 2022 14:09
[2022-03-11] MEDS ORDERED: RT-ALBUTEROL SULF 2.5 MG/3 ML PRE-MIX VIAL INH PRN (14:15)
[2022-03-11] MEDS: LORazepam ORAL CONCENTRATE 2 MG/ML 30 ML (ATIVAN) PO PRN ×3 (15:30→22:18)
[2022-03-11] MEDS ORDERED: METO200T48 PO (15:48)
[2022-03-11] MEDS ORDERED: GBPN600T PO (15:48)
[2022-03-11] MEDS ORDERED: BREX0.5T PO (15:49)
[2022-03-11] MEDS ORDERED: ALPR0.5T7 PO (15:49)
[2022-03-11] MEDS ORDERED: TRAM50TA3 PO (15:52)
[2022-03-11] MEDS ORDERED: LEVO50TA6 PO (15:52)
[2022-03-11] MEDS ORDERED: IBUP-1780 PO (15:52)
[2022-03-11] MEDS ORDERED: ROSU10TA28 PO (15:52)
[2022-03-11] MEDS ORDERED: FURO20TA4 PO (15:52)
[2022-03-11] MEDS ORDERED: DOCU100T7 PO (15:56)
[2022-03-11] MEDS ORDERED: DICL20GE TP (15:56)
[2022-03-11] MEDS ORDERED: ACET-2267 PO (15:56)
[2022-03-11 16:20] VITALS: BP 122/78
[2022-03-11] MEDS: PIPERACILLIN SODIUM/TAZOBACTAM 4.5 GM in NS (IVPB) 100 ML IV SCH (18:11)
[2022-03-11] MEDS: ONDANSETRON 4 MG/2 ML (SDV) Z0FRAN IV PRN (18:57)
[2022-03-11 19:50] VITALS: BP 134/71
[2022-03-11] MEDS: cloNIDine 0.2 MG (CATAPRES) TAB PO SCH (19:50)
[2022-03-11 23:05] VITALS: BP 127/79
[2022-03-12] VITALS (16 sets, daily range): BP systolic 111–158; BP diastolic 73–99
[2022-03-12] MEDS: PIPERACILLIN SODIUM/TAZOBACTAM 4.5 GM in NS (IVPB) 100 ML IV SCH ×3 (02:09→18:55)
[2022-03-12] MEDS: morphine INJ 4 MG/ML 1 ML (VIAL/SYRINGE) IV PRN ×6 (02:20→23:19)
[2022-03-12] MEDS: LORazepam ORAL CONCENTRATE 2 MG/ML 30 ML (ATIVAN) PO PRN ×5 (02:21→23:49)
[2022-03-12] MEDS: NS IV 1000 ML 1,000 ML IV SCH ×2 (05:48→13:43)
[2022-03-12 07:37] LABS: CALCIUM 8.5 MG/DL (8.5-10.1); CREATININE SERUM 0.86 MG/DL (0.60-1.30); POTASSIUM 3.8 MMOL/L (3.6-5.0)
[2022-03-12] MEDS: PANTOPRAZOLE 40 MG (PROTONIX) VIAL IV SCH (07:58)
--- NOTE | 2022-03-12 08:01 | Progress Note - Surgery ---
RAFFIKRISTASAL VIRK 03/12/22 0801: Subjective Date Seen by a Provider: Mar 12, 2022 Time Seen by a Provider: 07:54 Subjective/Events-last exam Pt is laying in bed comfortably. Pt states that her pain has been well controlled when laying still but has pain with movement and with palpation. Pt says that she is anxious about being in the hospital. Urine output over the last 8 hours was 1.36 ml/kg/hr. Pt states that she has not had a bowel movement. Pt notes that she has been feeling more bloated on the right side of her abdomen. Pt denies n/v, diarrhea, CP, and SOB. Review of Systems General: No Chills, No Night Sweats HEENT: No Head Aches, No Eye Pain Pulmonary: No Dyspnea, No Cough Cardiovascular: No: Chest Pain, Palpitations Gastrointestinal: Abdominal Pain; No: Nausea, Vomiting Genitourinary: No Dysuria, No Frequency Musculoskeletal: No: neck pain, shoulder pain Neurological: No: Weakness, Numbness Objective Exam Vital Signs Date Time Temp Pulse Resp B/P (MAP) Pulse Ox O2 Delivery O2 Flow Rate FiO2 03/12/22 03:20 37.2 100 20 111/73 (86) 95 Nasal Cannula 2.00 03/11/22 23:12 94 Nasal Cannula 2.00 03/11/22 23:05 36.9 96 20 127/79 (95) 87 Room Air 03/11/22 19:50 37.0 91 20 134/71 (92) 96 Room Air 03/11/22 19:50 Room Air 03/11/22 18:29 94 Room Air 03/11/22 16:20 36.4 67 20 122/78 (93) 92 Room Air 03/11/22 13:44 36.8 82 94 03/11/22 13:22 Room Air 03/11/22 11:25 36.8 82 16 117/71 (86) 94 Room Air 03/11/22 10:11 36.5 84 15 132/68 98 Room Air 03/11/22 08:16 36.5 95 16 163/95 (117) Room Air I & O 03/12/22 07:00 Intake Total 2300 ml Output Total 1000 ml Balance 1300 ml Capillary Refill : Less Than 3 Seconds General Appearance: WD/WN, Anxious HEENT: PERRL/EOMI, Normal ENT Inspection Neck: Normal Inspection, Supple Respiratory: Chest Non Tender, Normal Breath Sounds, No Accessory Muscle Use, No Respiratory Distress Cardiovascular: No JVD, Tachycardia Gastrointestinal: soft; No distended, No guarding, No rebound; tenderness (global, RLQ worse than left) Extremity: Normal Inspection, Normal Range of Motion Neurologic/Psychiatric: Alert, Oriented x3, Normal Mood/Affect Skin: Normal Color, Warm/Dry Lymphatic: No Adenopathy Results Lab Laboratory Tests 03/11/22 08:17: Urine Color YELLOW, Urine Clarity SL CLOUDY, Urine pH 6.0, Urine Specific [place] <=1.005, Urine Protein NEGATIVE, Urine Glucose (UA) NEGATIVE, Urine Ketones NEGATIVE, Urine Nitrite NEGATIVE, Urine Bilirubin NEGATIVE, Urine Urobilinogen 0.2, Urine Leukocyte Esterase NEGATIVE, Urine RBC (Auto) NEGATIVE, Urine RBC NONE, Urine WBC 0-2, Urine Squamous Epithelial Cells 0-2, Urine Crystals NONE, Urine Bacteria TRACE, Urine Casts NONE, Urine Mucus NEGATIVE, Urine Culture Indicated NO 03/11/22 08:22: White Blood Count 10.4, Red Blood Count 3.97, Hemoglobin 11.5, Hematocrit 35, Mean Corpuscular Volume 89, Mean Corpuscular Hemoglobin 29, Mean Corpuscular Hemoglobin Concent 33, Red Cell Distribution Width 13.4, Platelet Count 308, Mean Platelet Volume 9.9, Immature Granulocyte % (Auto) 0, Neutrophils (%) (Auto) 76H, Lymphocytes (%) (Auto) 17, Monocytes (%) (Auto) 7, Eosinophils (%) (Auto) 0, Basophils (%) (Auto) 0, Neutrophils # (Auto) 7.9H, Lymphocytes # (Auto) 1.8, Monocytes # (Auto) 0.7, Eosinophils # (Auto) 0.0, Basophils # (Auto) 0.0, Immature Granulocyte # (Auto) 0.0, Sodium Level 137, Potassium Level 3.4L, Chloride Level 99, Carbon Dioxide Level 26, Anion Gap 12, Blood Urea Nitrogen 6L , Creatinine 0.84, Estimat Glomerular Filtration Rate 84, BUN/Creatinine Ratio 7, Glucose Level 123H, Calcium Level 9.4, Corrected Calcium 9.2, Total Bilirubin 0.7, Aspartate Amino Transf (AST/SGOT) 12, Alanine Aminotransferase (ALT/SGPT) 6, Alkaline Phosphatase 103, C-Reactive Protein 21.25H, Total Protein 7.3, Albumin 4.3, Lipase 14 03/12/22 00:00: 03/12/22 05:48: Sodium Level 136, Potassium Level 3.8, Chloride Level 102, Carbon Dioxide Level 20L, Anion Gap 14, Blood Urea Nitrogen 7, Creatinine 0.86, Estimat Glomerular Filtration Rate 81, BUN/Creatinine Ratio 8, Glucose Level 101, Calcium Level 8.5 Assessment/Plan Assessment/Plan Assessment/Plan Right lower quadrant abdominal pain Nausea Appendiceal perforation versus cecal perforation possible early intraabdominal abscess Continue NPO, can have some meds PO Perform diagnostic laparoscopy once phlegmon has time to cool off. Will consider doing earlier if there is a change in condition. Continue abx IV fluids Continue pain control JYOTHI CONTRERAS DO 03/12/22 1506: Subjective Subjective/Events-last exam Patient laying still. More pain when moves or touched. Started having fever. Tachycardia. WBC 7.7 Denies sweats chills shortness of breath or chest pain. Objective Exam General Appearance: WD/WN, Anxious HEENT: PERRL/EOMI, Normal ENT Inspection Neck: Normal Inspection, Supple Respiratory: Chest Non Tender, No Accessory Muscle Use, No Respiratory Distress Cardiovascular: No JVD, Tachycardia Gastrointestinal: soft; No distended; tenderness (worseing rlq pain, more localized peritonitis) Extremity: Normal Inspection, Normal Range of Motion Neurologic/Psychiatric: Alert, Oriented x3, Normal Mood/Affect Skin: Normal Color, Warm/Dry Lymphatic: No Adenopathy Assessment/Plan Assessment/Plan Assessment/Plan Right lower quadrant abdominal pain Nausea Appendiceal perforation versus cecal perforation possible early intraabdominal abscess Continue NPO, Worsening pain on exam and febrile with tachycardia. Based on exam we discussed risks and benefits to perform diagnostic laparoscopy possible open all other indicated procedures. May need colon resection. She understands and wishes to proceed. To OR Continue abx IV fluids Continue pain control Supervisory-Addendum Brief Verification & Attestation Participated in pt care: history, MDM, physical Personally performed: exam, history, MDM, supervision of care Care discussed with: Medical Student Procedures: n/a Results interpretation: Verified all documentation Verification and Attestation of Medical Student E/M Service A medical student performed and documented this service in my presence. I reviewed and verified all information documented by the medical student and made modifications to such information, when appropriate. I personally performed the physical exam and medical decision making. Jyothi Contreras, Mar 12, 2022,15:07 SAL LAWRENCE Mar 12, 2022 08:01 JYOTHI CONTRERAS DO Mar 12, 2022 15:06
[2022-03-12 08:19] LABS: BASOPHILS % (AUTO) 0 % (0-10); EOSINOPHILS # (AUTO) 0.1 10^3/uL (0.0-0.3); EOSINOPHILS % (AUTO) 1 % (0-10); HEMATOCRIT 31 % (35-52); LYMPHOCYTES % (AUTO) 14 % (12-44); MEAN CORPUSCULAR HEMOGLOBIN 29 pg (25-34); MEAN CORPUSCULAR HGB CONC 32 g/dL (32-36); MEAN CORPUSCULAR VOLUME 92 fL (80-99); MEAN PLATELET VOLUME 9.8 fL (9.0-12.2); MONOCYTES # (AUTO) 0.5 10^3/uL (0.0-1.0); MONOCYTES % (AUTO) 6 % (0-12); NEUTROPHILS % (AUTO) 79 % (42-75); PLATELET COUNT 257 10^3/uL (130-400); WHITE BLOOD COUNT 7.7 10^3/uL (4.3-11.0)
[2022-03-12] MEDS: DULoxetine 30 MG (CYMBALTA) CAP PO SCH (09:25)
[2022-03-12] MEDS ORDERED: LIDOCAINE/EPI 2% 1:200,00 (XYLOCAINE) 20 ML VIAL ONE (14:57)
[2022-03-12] MEDS ORDERED: MIDAZOLAM 2 MG/2 ML (VERSED) VIAL ONE (15:18)
[2022-03-12] MEDS ORDERED: ONDANSETRON 4 MG/2 ML (SDV) Z0FRAN ONE ×2 (15:18→15:38)
[2022-03-12] MEDS ORDERED: ROCURONIUM 50 MG/5 ML (ZEMURON) VIAL IV ONE (15:18)
[2022-03-12] MEDS ORDERED: SUCCINYLCHOLINE INJ 100 MG/5 ML SYR/VIAL ONE (15:18)
[2022-03-12] MEDS ORDERED: fentaNYL INJ 100 MCG/2 ML AMP ONE ×3 (15:18→16:15)
[2022-03-12] MEDS ORDERED: proPOfol 200 MG/20 ML (DIPRIVAN) VIAL IV ONE (15:18)
[2022-03-12] MEDS ORDERED: LIDOCAINE PF 2% 5 ML (XYLOCAINE) VIAL ONE (15:18)
[2022-03-12] MEDS ORDERED: morphine INJ 10 MG/ML 1ML (SYR OR VIAL) ONE (15:37)
[2022-03-12] MEDS ORDERED: HYDROmorphone 2 MG/ML VIAL (DILAUDID) ONE (15:38)
[2022-03-12] MEDS ORDERED: LACTATED RINGERS 1,000 ML IV PRN (16:00)
--- NOTE | 2022-03-12 16:14 | Progress Note - Hospitalist ---
Subjective HPI/CC On Admission Date Seen by Provider: Mar 12, 2022 Patient is a 51-year-old female with past medical history of hypertension who presented to the emergency department due to abdominal pain. She has a history of prior kidney stones and believes this felt similar. She took Tylenol at home with little to no improvement in her pain opting her to seek evaluation in the emergency department. In the ER a CT of her abdomen was done which revealed a possible appendiceal perforation. She was admitted to the surgery service for further management. I am consulted for medical management. She reports her only other concern right now is extreme anxiety about potential surgery and her daughter at home. She still does complain of pain and gets no relief from the fentanyl but morphine has been helping. Subjective/Events-last exam Saw patient earlier in the day and had no new complaints. Had persistent pain and anxiety but was doing okay. Was called later in the day by nurse due to new onset fever and tachycardia. I contacted Dr. Contreras regarding changes in clinical status and he states he will plan to take her to surgery today. Objective Exam Vital Signs Vital Signs Date Time Temp Pulse Resp B/P (MAP) Pulse Ox O2 Delivery O2 Flow Rate FiO2 03/12/22 12:16 38.2 107 16 138/86 (103) 94 Nasal Cannula 2.00 Capillary Refill : Less Than 3 Seconds General Appearance: No Apparent Distress, Anxious, Obese Respiratory: Lungs Clear, No Respiratory Distress Cardiovascular: Regular Rate, Rhythm, No Murmur Gastrointestinal: Normal Bowel Sounds, Distended; No Guarding; Tenderness Neurologic/Psychiatric: Alert, Oriented x3 Results/Procedures Lab Laboratory Tests 03/12/22 05:48 03/12/22 08:05 Patient resulted labs reviewed. Assessment/Plan Assessment and Plan Assess & Plan/Chief Complaint Appendiceal perforation CT read as appendiceal perf but surgery concerned for cecal perf Planning for OR today given new fever and tachycardia Continue Zosyn Management per primary, surgery HTN BP improved Trend Depression and Anxiety Ativan intensol prn Cymbalta DVT ppx: FRANTZ Sanders MD Mar 12, 2022 16:14
--- NOTE | 2022-03-12 17:07 | Progress Note-Post Operative ---
Post-Operative Progess Note Surgeon (s)/Rivet Sorter (s) Surgeon JYOTHI GOMEZ DO Rivet Sorter: Dr. Soto assisted retractiondissection anatomy identification and closure Pre-Operative Diagnosis appendiceal perforation Post-Operative Diagnosis intrabdominal abscess, dilated inflamed appendix Procedure & Operative Findings Date of Procedure 03/12/22 Procedure Performed/Findings diagnostic laparoscopy, lysis of adhesions, drainage of intrabdominal abscess, appendecctomy Anesthesia Type general Estimated Blood Loss Estimated blood loss (mL): minimal Specimens/Packing Specimens Removed appendix JYOTHI GOMEZ DO Mar 12, 2022 17:07
[2022-03-12] MEDS ORDERED: SEVOFLURANE (ULTANE) 15 ML INHAL SOLN ONE (17:11)
[2022-03-12] MEDS ORDERED: HYDROmorphone 2 MG/ML VIAL (DILAUDID) IV ONE (17:30)
[2022-03-12] MEDS ORDERED: ONDANSETRON 4 MG/2 ML (SDV) Z0FRAN IVP PRN (17:30)
[2022-03-12] MEDS ORDERED: MEPERIDINE (DEMEROL) INJ 50 MG/ML IVP ONE (17:30)
[2022-03-12] MEDS ORDERED: RT-ALBUTEROL SULF 2.5 MG/3 ML PRE-MIX VIAL INH ONE (17:30)
[2022-03-12] MEDS ORDERED: morphine INJ 10 MG/ML 1ML (SYR OR VIAL) IVP ONE (17:30)
[2022-03-12] MEDS ORDERED: PROMETHAZINE INJ 25 MG/ML (PHENERGAN) AMP IVP ONE (17:30)
[2022-03-12] MEDS: cloNIDine 0.2 MG (CATAPRES) TAB PO SCH (19:49)
[2022-03-12] MEDS ORDERED: RT-ALBUTEROL SULF 2.5 MG/3 ML PRE-MIX VIAL IH PRN (20:15)
[2022-03-12] MEDS ORDERED: DICLOFENAC 1% GEL 100 GM (VOLTAREN) TUBE TP PRN (20:15)
[2022-03-12] MEDS ORDERED: GABAPENTIN 600 MG (NEURONTIN) TAB ONE (20:34)
[2022-03-12] MEDS ORDERED: ALPRAZolam 0.5 MG (XANAX) TAB ONE (20:35)
[2022-03-12] MEDS: ALPRAZolam 0.5 MG (XANAX) TAB PO SCH (20:37)
[2022-03-12] MEDS: GABAPENTIN 600 MG (NEURONTIN) TAB PO SCH (20:37)
--- NOTE | 2022-03-13 00:37 | OPERATIVE REPORT ---
DATE OF SERVICE: 03/12/2022 PREOPERATIVE DIAGNOSIS: Appendiceal perforation. POSTOPERATIVE DIAGNOSIS: Intra-abdominal abscess, intraabdominal adhesions, dilated inflamed appendix. PROCEDURE: Diagnostic laparoscopy, lysis of adhesions, drainage of intra-abdominal abscess, appendectomy. SURGEON: Jyothi Contreras DO SUPERVISOR LABORATORY: Dr. Soto, who assisted in retraction, dissection, anatomy identification and closure. ANESTHESIA: General. ESTIMATED BLOOD LOSS: Minimal. COMPLICATIONS: None. SPECIMENS: Appendix. INDICATIONS: The patient is a 51-year-old female who presented with right lower quadrant abdominal pain, suspected appendiceal or cecal perforation possibly appeared to be large phlegmon in the right lower quadrant. The plan was to keep her on antibiotics and get this to reduce and proceed with a diagnostic laparoscopy on Friday; however, the patient became more tachycardic, having more pain in the right lower quadrant and having fever. Therefore, we decided to go ahead and proceed today. She understands risks and benefits of procedure and wished to proceed. Consent was signed in the chart. DESCRIPTION OF PROCEDURE: The patient was taken to the operating suite, was prepped and draped in sterile fashion. Timeout was performed. Local anesthetic was infiltrated just above the umbilicus, 11 blade scalpel was used to make a 12 mm incision. Cautery was used to dissect down to the fascia, which was then scored. Kochers were used to grasp and elevate it and the abdomen was then entered. A 12 xie trocar was inserted. Pneumoperitoneum was achieved. The scope was inserted. Multiple adhesions all along the right gutter all the way down to the pelvis down towards the left lower quadrant, 5 mm trocar was placed under direct visualization of the laparoscope and 5 mm trocar second one was placed lateral and slightly inferior to the umbilicus. A LigaSure was then used to start taking down adhesions along with blunt dissection. Once the adhesions were freed, there is a significant phlegmon present along the right gutter with there also being significant adhesions to the abdominal wall. There was an abscess that was contained within the large phlegmon, which was drained and suctioned. As this was released from the anterior abdominal wall, the cecum was identified by following the terminal ileum with again significant phlegmon in this area. Very firm as well. The base of the appendix was able to be visualized and was grasped and the base of the appendix had normal appearance. This was grasped and began to be elevated and carefully dissected from the phlegmon, which encountered a large dilated appendix, which was able to be elevated. A LigaSure was used to divide the mesoappendix after the base of the appendix was dissected around and a 2.5 stapler was fired across it. Once the mesoappendix was divided with the LigaSure, then this was placed in an Endobag and removed through 12 mm trocar site. The area was then irrigated with copious amounts of irrigation. Hemostasis was achieved. A 19 Bry drain was then placed within the abdomen and brought out through the left lower quadrant 5 mm trocar site was secured in the usual fashion with 3-0 nylon suture. The trocars were removed. The abdomen was then desufflated. The fascial defect was closed with 0 Vicryl in a [id number] fashion. The skin was then closed using 4-0 Monocryl in subcuticular fashion. The abdomen was washed and dried and Skin Affix was placed over the incisions. The patient tolerated procedure well without any complications. She was taken to recovery room in stable condition. Job ID: [id number] DocumentID: [id number] Dictated Date: 03/12/2022 21:22:40 Production Artist Date: 03/13/2022 00:36:33 Dictated By: JYOTHI CONTRERAS DO
[2022-03-13] MEDS: NS IV 1000 ML 1,000 ML IV SCH ×4 (01:28→21:48)
[2022-03-13] MEDS: PIPERACILLIN SODIUM/TAZOBACTAM 4.5 GM in NS (IVPB) 100 ML IV SCH ×3 (01:29→17:17)
[2022-03-13 03:41] VITALS: BP 126/83
[2022-03-13] MEDS: LEVOTHYROXINE 50 MCG (LEVOTHROID) TAB PO SCH (06:15)
[2022-03-13] MEDS: HYDROcodone/APAP 5 MG/325 MG (LORTAB) TAB PO PRN ×4 (06:18→18:02)
--- NOTE | 2022-03-13 07:44 | Progress Note - Surgery ---
HOWARDSAL 03/13/22 0744: Subjective Date Seen by a Provider: Mar 13, 2022 Time Seen by a Provider: 07:39 Subjective/Events-last exam Pt is resting in bed in mild discomfort. Pt states that her abd pain is still an 8/10 with movement and is localized to the RLQ and around incisions. Pt's MOJGAN drain contains ~75ml of serosanguineous drainage. Pt contains to void and had 1.09 ml/kg/hr output over 12hrs. Pt has not had flatus or a bowel movement but states that she feels like she has to pass gas. Pt denies n/v, CP,SOB, and sweats. Review of Systems General: No Chills, No Night Sweats HEENT: No Head Aches, No Visual Changes Pulmonary: No Dyspnea, No Cough Cardiovascular: No: Chest Pain, Palpitations Gastrointestinal: Abdominal Pain; No: Nausea, Vomiting Genitourinary: No Dysuria, No Frequency Musculoskeletal: No: neck pain, shoulder pain Neurological: No: Weakness, Numbness Objective Exam Vital Signs Date Time Temp Pulse Resp B/P (MAP) Pulse Ox O2 Delivery O2 Flow Rate FiO2 03/13/22 03:41 36.9 111 20 126/83 (97) 92 Nasal Cannula 3.00 03/12/22 23:26 37.0 110 20 139/85 (103) 96 Nasal Cannula 3.00 03/12/22 20:05 36.6 126 20 151/78 (102) 94 Nasal Cannula 3.00 03/12/22 19:50 Nasal Cannula 2.00 03/12/22 19:05 92 Nasal Cannula 3.00 03/12/22 18:29 36.6 126 20 151/78 (102) 94 Nasal Cannula 3.00 03/12/22 18:25 Nasal Cannula 5.00 03/12/22 18:25 36.3 20 158/96 (116) 94 Nasal Cannula 5.00 03/12/22 18:20 20 158/98 (118) 96 Nasal Cannula 5.00 03/12/22 18:20 Nasal Cannula 5.00 03/12/22 18:15 Nasal Cannula 5.00 03/12/22 18:10 20 158/96 (116) 96 Nasal Cannula 5.00 03/12/22 18:00 20 158/89 (112) 97 Nasal Cannula 5.00 03/12/22 18:00 Nasal Cannula 5.00 03/12/22 17:50 20 151/99 (116) 97 Nasal Cannula 5.00 03/12/22 17:45 Nasal Cannula 5.00 03/12/22 17:43 95 OxyMask 10.00 03/12/22 17:40 20 132/84 (100) 93 OxyMask 5.00 03/12/22 17:30 20 150/97 (114) 95 OxyMask 6.00 03/12/22 17:30 OxyMask 10.00 03/12/22 17:20 OxyMask 10.00 03/12/22 17:20 37.0 20 143/89 (107) 94 OxyMask 10.00 03/12/22 13:00 37.2 122 20 155/93 (113) 93 Nasal Cannula 3.00 03/12/22 12:16 38.2 107 16 138/86 (103) 94 Nasal Cannula 2.00 03/12/22 12:00 37.9 133 22 135/81 (99) 93 Nasal Cannula 3.00 03/12/22 08:25 37.3 100 18 130/81 (97) 91 Nasal Cannula 1.00 03/12/22 08:00 93 Room Air I & O 03/13/22 07:00 Intake Total 1600 ml Output Total 2570 ml Balance -970 ml Capillary Refill : Less Than 3 SecondsLess Than 3 Seconds General Appearance: No Apparent Distress, Anxious, Obese HEENT: PERRL/EOMI, Normal ENT Inspection Neck: Normal Inspection, Supple Respiratory: No Accessory Muscle Use, No Respiratory Distress Cardiovascular: No Murmur, Normal Peripheral Pulses, Tachycardia Gastrointestinal: soft; No distended; tenderness (rlq pain, incisional pain, MOJGAN drain located LLQ containing serosanguineous fluid) Extremity: Normal Inspection, Normal Range of Motion Neurologic/Psychiatric: Alert, Normal Mood/Affect Skin: Normal Color, Warm/Dry Lymphatic: No Adenopathy Results Lab Laboratory Tests 03/12/22 08:05: White Blood Count 7.7, Red Blood Count 3.40L, Hemoglobin 10.0L, Hematocrit 31L, Mean Corpuscular Volume 92, Mean Corpuscular Hemoglobin 29, Mean Corpuscular Hemoglobin Concent 32, Red Cell Distribution Width 14.0, Platelet Count 257, Mean Platelet Volume 9.8, Immature Granulocyte % (Auto) 0, Neutrophils (%) (Auto) 79H, Lymphocytes (%) (Auto) 14, Monocytes (%) (Auto) 6, Eosinophils (%) (Auto) 1, Basophils (%) (Auto) 0, Neutrophils # (Auto) 6.0, Lymphocytes # (Auto) 1.0, Monocytes # (Auto) 0.5, Eosinophils # (Auto) 0.1, Basophils # (Auto) 0.0, Immature Granulocyte # (Auto) 0.0 Assessment/Plan Assessment/Plan Assessment/Plan Right lower quadrant abdominal pain Nausea Appendiceal perforation versus cecal perforation possible early intraabdominal abscess S/p laparoscopic appendectomy Continue NPO Continue abx IV fluids Continue pain control JYOTHI CONTRERAS DO 03/13/22 2100: Subjective Subjective/Events-last exam Patient feeling little bit better. Abdominal pain she rates an 8 out of 10. Better with laying still. Movement makes worse. MOJGAN drain serosanguineous. Tolerating clears denies any nausea vomiting fever sweats chills shortness of breath or chest pain at this time. Objective Exam General Appearance: No Apparent Distress, Anxious, Obese HEENT: PERRL/EOMI, Normal ENT Inspection Neck: Normal Inspection, Non Tender Respiratory: Chest Non Tender, No Accessory Muscle Use, No Respiratory Distress Cardiovascular: No JVD, Tachycardia Gastrointestinal: No distended; tenderness (rlq pain, incisional pain, MOJGAN drain located LLQ containing serosanguineous fluid) Extremity: Normal Inspection, Normal Range of Motion Neurologic/Psychiatric: Alert, Oriented x3, Normal Mood/Affect Skin: Normal Color, Warm/Dry Lymphatic: No Adenopathy Assessment/Plan Assessment/Plan Assessment/Plan Right lower quadrant abdominal pain Nausea Appendiceal perforation intraabdominal abscess S/p laparoscopic lysis of adhesions, drainage of intraabdominal abscess, appendectomy Continue clears Continue abx IV fluids Continue pain control IS SCD"s and ambulate TID repeat labs in am Supervisory-Addendum Brief Verification & Attestation Participated in pt care: history, MDM, physical Personally performed: exam, history, MDM, supervision of care Care discussed with: Medical Student Procedures: n/a Results interpretation: Verified all documentation Verification and Attestation of Medical Student E/M Service A medical student performed and documented this service in my presence. I reviewed and verified all information documented by the medical student and made modifications to such information, when appropriate. I personally performed the physical exam and medical decision making. Jyothi Contreras, Mar 13, 2022,21:00 SAL LAWRENCE Mar 13, 2022 07:44 JYOTHI CONTRERAS DO Mar 13, 2022 21:00
[2022-03-13] MEDS: morphine INJ 4 MG/ML 1 ML (VIAL/SYRINGE) IV PRN ×3 (07:58→17:01)
[2022-03-13 08:00] VITALS: BP 130/78
[2022-03-13] MEDS: GABAPENTIN 600 MG (NEURONTIN) TAB PO SCH ×3 (09:15→19:57)
[2022-03-13] MEDS: DULoxetine 30 MG (CYMBALTA) CAP PO SCH (09:15)
[2022-03-13] MEDS: PANTOPRAZOLE 40 MG (PROTONIX) VIAL IV SCH (09:16)
[2022-03-13 09:27] LABS: HEMATOCRIT 30 % (35-52); HEMOGLOBIN 9.7 g/dL (11.5-16.0); MEAN CORPUSCULAR HEMOGLOBIN 29 pg (25-34); MEAN CORPUSCULAR HGB CONC 32 g/dL (32-36); MEAN CORPUSCULAR VOLUME 91 fL (80-99); MEAN PLATELET VOLUME 9.9 fL (9.0-12.2); PLATELET COUNT 258 10^3/uL (130-400)
[2022-03-13 09:41] LABS: POTASSIUM 3.3 MMOL/L (3.6-5.0)
[2022-03-13 09:43] LABS: CALCIUM 8.2 MG/DL (8.5-10.1)
[2022-03-13 09:47] LABS: CREATININE SERUM 0.75 MG/DL (0.60-1.30)
--- NOTE | 2022-03-13 10:38 | Anesthesia-General Post-Op ---
General Patient Condition Mental Status/LOC: Same as Preop Cardiovascular: Satisfactory Nausea/Vomiting: Absent Respiratory: Satisfactory Pain: Controlled Complications: Absent Post Op Complications Complications None Follow Up Care/Instructions Patient Instructions None needed. Anesthesia/Patient Condition Patient Condition Patient is doing well, no complaints, stable vital signs, no apparent adverse anesthesia problems. No complications reported per nursing. YANICK BERNAL CRNA Mar 13, 2022 10:37
[2022-03-13 12:00] VITALS: BP 121/71
--- NOTE | 2022-03-13 14:59 | Progress Note - Hospitalist ---
Subjective HPI/CC On Admission Date Seen by Provider: Mar 13, 2022 Patient is a 51-year-old female with past medical history of hypertension who presented to the emergency department due to abdominal pain. She has a history of prior kidney stones and believes this felt similar. She took Tylenol at home with little to no improvement in her pain opting her to seek evaluation in the emergency department. In the ER a CT of her abdomen was done which revealed a possible appendiceal perforation. She was admitted to the surgery service for further management. I am consulted for medical management. She reports her only other concern right now is extreme anxiety about potential surgery and her daughter at home. She still does complain of pain and gets no relief from the fentanyl but morphine has been helping. Subjective/Events-last exam Pt reports feeling ok today but having gas pain. No other specific complaints. Objective Exam Vital Signs Vital Signs Date Time Temp Pulse Resp B/P (MAP) Pulse Ox O2 Delivery O2 Flow Rate FiO2 03/13/22 12:00 36.4 107 20 121/71 (88) 94 Nasal Cannula 3.00 Capillary Refill : Less Than 3 SecondsLess Than 3 Seconds General Appearance: No Apparent Distress, WD/WN Respiratory: Lungs Clear, No Respiratory Distress Cardiovascular: Regular Rate, Rhythm, No Murmur Gastrointestinal: Normal Bowel Sounds, Soft Neurologic/Psychiatric: Alert, Oriented x3 Results/Procedures Lab Laboratory Tests 03/13/22 09:21 Patient resulted labs reviewed. Assessment/Plan Assessment and Plan Assess & Plan/Chief Complaint Appendiceal perforation with abscess CT read as appendiceal perf but surgery concerned for cecal perf POD #1 Continue Zosyn Management per primary, surgery HTN BP well controlled COntinue Clonidine and resume metoprolol Trend Depression and Anxiety Ativan intensol prn Cymbalta DVT ppx: SCDs FRANTZ JONES MD Mar 13, 2022 14:59
[2022-03-13 16:04] VITALS: BP 131/77
[2022-03-13] MEDS: LORazepam ORAL CONCENTRATE 2 MG/ML 30 ML (ATIVAN) PO PRN (17:02)
[2022-03-13] MEDS ORDERED: meTOproloL SUCCINATE 50 MG (TOPROL XL) TAB PO NR (17:30)
[2022-03-13] MEDS ORDERED: NON-FORMULARY MEDICATION 1 EA EA (Brexpiprazole (Rexulti) 0.5 MG) PO SCH (18:00)
[2022-03-13] MEDS: guaiFENesin (MUCINEX) 600 MG TAB PO PRN (18:02)
[2022-03-13] MEDS: cloNIDine 0.2 MG (CATAPRES) TAB PO SCH (19:57)
[2022-03-13] MEDS: ALPRAZolam 0.5 MG (XANAX) TAB PO SCH (19:57)
[2022-03-13 20:04] VITALS: BP 138/77
[2022-03-13 23:58] VITALS: BP 108/71
[2022-03-14] MEDS: PIPERACILLIN SODIUM/TAZOBACTAM 4.5 GM in NS (IVPB) 100 ML IV SCH ×3 (01:58→17:16)
[2022-03-14] MEDS: HYDROcodone/APAP 5 MG/325 MG (LORTAB) TAB PO PRN ×5 (03:39→21:25)
[2022-03-14 03:59] VITALS: BP 122/77
[2022-03-14] MEDS: LEVOTHYROXINE 50 MCG (LEVOTHROID) TAB PO SCH (05:11)
[2022-03-14] MEDS: guaiFENesin (MUCINEX) 600 MG TAB PO PRN ×2 (05:11→17:20)
[2022-03-14] MEDS: NS IV 1000 ML 1,000 ML IV SCH ×3 (05:12→21:25)
[2022-03-14 05:47] LABS: HEMATOCRIT 29 % (35-52); HEMOGLOBIN 9.2 g/dL (11.5-16.0); MEAN CORPUSCULAR HEMOGLOBIN 29 pg (25-34); MEAN CORPUSCULAR HGB CONC 31 g/dL (32-36); MEAN CORPUSCULAR VOLUME 93 fL (80-99); MEAN PLATELET VOLUME 9.9 fL (9.0-12.2); PLATELET COUNT 269 10^3/uL (130-400); WHITE BLOOD COUNT 5.5 10^3/uL (4.3-11.0)
[2022-03-14 05:51] LABS: POTASSIUM 3.1 MMOL/L (3.6-5.0)
[2022-03-14 05:53] LABS: CALCIUM 8.2 MG/DL (8.5-10.1)
[2022-03-14 05:57] LABS: CREATININE SERUM 0.74 MG/DL (0.60-1.30)
--- NOTE | 2022-03-14 06:55 | Progress Note - Surgery ---
RAFFIISRAELSAL Min 03/14/22 0655: Subjective Date Seen by a Provider: Mar 14, 2022 Time Seen by a Provider: 06:48 Subjective/Events-last exam Pt is resting in bed. Pt states that she has experienced flatus but no bowel movements. Pt notes an improvement in abd pain from yesterday and was able to a mbulate around bautista. Pt is tolerating diet and expresses desire to progress diet. Pt had 100ml of serous drainage from MOJGAN drain present. Pt's urine output was .62 ml/kg/hr for the past 8 hours. Pt denies n/v, CP, SOB, and sweats. Review of Systems General: No Chills, No Night Sweats HEENT: No Head Aches, No Visual Changes Pulmonary: No Dyspnea, No Cough Cardiovascular: No: Chest Pain, Palpitations Gastrointestinal: Abdominal Pain; No: Nausea, Vomiting Genitourinary: No Dysuria, No Frequency Musculoskeletal: No: neck pain, shoulder pain Neurological: No: Weakness, Numbness Objective Exam Vital Signs Date Time Temp Pulse Resp B/P (MAP) Pulse Ox O2 Delivery O2 Flow Rate FiO2 03/14/22 03:59 37.0 80 18 122/77 (92) 100 Nasal Cannula 3.00 03/13/22 23:58 36.4 88 18 108/71 (83) 94 Nasal Cannula 3.00 03/13/22 20:04 36.9 99 20 138/77 (97) 95 Room Air 03/13/22 20:00 Room Air 03/13/22 16:53 95 Room Air 03/13/22 16:04 37.2 106 20 131/77 (95) 98 Nasal Cannula 3.00 03/13/22 12:00 36.4 107 20 121/71 (88) 94 Nasal Cannula 3.00 03/13/22 08:00 37.9 105 20 130/78 (95) 93 Nasal Cannula 3.00 03/13/22 08:00 Nasal Cannula 2.00 I & O 03/14/22 07:00 Intake Total 4622 ml Output Total 2600 ml Balance 2022 ml Capillary Refill : Less Than 3 SecondsLess Than 3 Seconds General Appearance: No Apparent Distress, WD/WN, Obese HEENT: PERRL/EOMI, Normal ENT Inspection Neck: Normal Inspection, Non Tender Respiratory: Lungs Clear, Normal Breath Sounds, No Accessory Muscle Use, No Respiratory Distress Cardiovascular: Regular Rate, Rhythm, No JVD, Tachycardia Gastrointestinal: soft, tenderness (rlq pain and incisional pain-improved, MOJGAN drain located LLQ containing serous fluid) Extremity: Normal Inspection, Normal Range of Motion Neurologic/Psychiatric: Alert, Oriented x3, Normal Mood/Affect Skin: Normal Color, Warm/Dry Lymphatic: No Adenopathy Results Lab Laboratory Tests 03/13/22 09:21: White Blood Count 6.0, Red Blood Count 3.30L, Hemoglobin 9.7L, Hematocrit 30L, Mean Corpuscular Volume 91, Mean Corpuscular Hemoglobin 29, Mean Corpuscular Hemoglobin Concent 32, Red Cell Distribution Width 13.5, Platelet Count 258, Mean Platelet Volume 9.9, Sodium Level 137, Potassium Level 3.3L, Chloride Level 103, Carbon Dioxide Level 22, Anion Gap 12, Blood Urea Nitrogen 4L, Creatinine 0.75, Estimat Glomerular Filtration Rate 96, BUN/Creatinine Ratio 5, Glucose Level 101, Calcium Level 8.2L 03/14/22 05:16: White Blood Count 5.5, Red Blood Count 3.18L, Hemoglobin 9.2L, Hematocrit 29L, Mean Corpuscular Volume 93, Mean Corpuscular Hemoglobin 29, Mean Corpuscular Hemoglobin Concent 31L, Red Cell Distribution Width 13.8, Platelet Count 269, Mean Platelet Volume 9.9, Sodium Level 141, Potassium Level 3.1L, Chloride Level 105, Carbon Dioxide Level 24, Anion Gap 12, Blood Urea Nitrogen 2L, Creatinine 0.74, Estimat Glomerular Filtration Rate 97, BUN/Creatinine Ratio 3, Glucose Level 112H, Calcium Level 8.2L Microbiology 03/12/22 MRSA Screen - Final, Complete MRSA not isolated Assessment/Plan Assessment/Plan Assessment/Plan Right lower quadrant abdominal pain Nausea Appendiceal perforation intraabdominal abscess S/p laparoscopic lysis of adhesions, drainage of intraabdominal abscess, appendectomy Pt has been experiencing flatus and is tolerating diet, consider progressing diet Continue abx IV fluids Continue pain control IS SCD"s and ambulate TID JYOTHI GOMEZ DO 03/14/22 0819: Subjective Subjective/Events-last exam Slight nausea. Pain controlled. MOJGAN srous. Ambulating and using IS. Denies fever sweats chills shortness of breath or chest pain Wanting food. Objective Exam General Appearance: No Apparent Distress, Obese HEENT: PERRL/EOMI, Normal ENT Inspection Neck: Normal Inspection, Non Tender Respiratory: Chest Non Tender, No Accessory Muscle Use, No Respiratory Distress Cardiovascular: Regular Rate, Rhythm, No JVD Gastrointestinal: soft, tenderness (rlq pain and incisional pain-improved, MOJGAN drain located LLQ containing serous fluid) Extremity: Normal Inspection, Normal Range of Motion Neurologic/Psychiatric: Alert, Oriented x3, Normal Mood/Affect Skin: Normal Color, Warm/Dry Lymphatic: No Adenopathy Assessment/Plan Assessment/Plan Assessment/Plan Right lower quadrant abdominal pain Nausea Appendiceal perforation intraabdominal abscess S/p laparoscopic lysis of adhesions, drainage of intraabdominal abscess, appendectomy hypokalemia Pt has been experiencing flatus and is tolerating diet, advance to dys 2 diet Continue abx IV fluids Continue pain control IS SCD"s and ambulate TID replace k Supervisory-Addendum Brief Verification & Attestation Participated in pt care: history, MDM, physical Personally performed: exam, history, MDM, supervision of care Care discussed with: Medical Student Procedures: n/a Results interpretation: Verified all documentation Verification and Attestation of Medical Student E/M Service A medical student performed and documented this service in my presence. I re viewed and verified all information documented by the medical student and made modifications to such information, when appropriate. I personally performed the physical exam and medical decision making. Jyothi Gomez, Mar 14, 2022,08:21 SAL LAWRENCE Mar 14, 2022 06:55 JYOTHI GOMEZ DO Mar 14, 2022 08:19
[2022-03-14 07:57] VITALS: BP 141/79
[2022-03-14] MEDS ORDERED: KCL 20 MEQ TAB (K-DUR) PO ONE (08:15)
[2022-03-14] MEDS ORDERED: KCL 20 MEQ TAB (K-DUR) PO NR (08:30)
[2022-03-14] MEDS: meTOproloL SUCCINATE 50 MG (TOPROL XL) TAB PO SCH (09:22)
[2022-03-14] MEDS: PANTOPRAZOLE 40 MG (PROTONIX) VIAL IV SCH (09:25)
[2022-03-14] MEDS: GABAPENTIN 600 MG (NEURONTIN) TAB PO SCH ×3 (09:25→20:07)
[2022-03-14] MEDS: DULoxetine 30 MG (CYMBALTA) CAP PO SCH (09:25)
[2022-03-14] MEDS: ONDANSETRON 4 MG/2 ML (SDV) Z0FRAN IV PRN ×2 (09:26→13:31)
[2022-03-14] MEDS ORDERED: ALPRAZolam 0.5 MG (XANAX) TAB PO PRN (11:00)
--- NOTE | 2022-03-14 11:02 | Progress Note - Hospitalist ---
Subjective HPI/CC On Admission Date Seen by Provider: Mar 14, 2022 Patient is a 51-year-old female with past medical history of hypertension who presented to the emergency department due to abdominal pain. She has a history of prior kidney stones and believes this felt similar. She took Tylenol at home with little to no improvement in her pain opting her to seek evaluation in the emergency department. In the ER a CT of her abdomen was done which revealed a possible appendiceal perforation. She was admitted to the surgery service for further management. I am consulted for medical management. She reports her only other concern right now is extreme anxiety about potential surgery and her daughter at home. She still does complain of pain and gets no relief from the fentanyl but morphine has been helping. Subjective/Events-last exam Pt reports not feeling as well today. Still having abd pain but is passing fl atus. Was up walking a lot yesterday though Objective Exam Vital Signs Vital Signs Date Time Temp Pulse Resp B/P (MAP) Pulse Ox O2 Delivery O2 Flow Rate FiO2 03/14/22 08:00 Nasal Cannula 2.00 03/14/22 07:57 36.9 78 18 141/79 (99) 93 Capillary Refill : Less Than 3 SecondsLess Than 3 Seconds General Appearance: No Apparent Distress, Obese Respiratory: Lungs Clear, No Respiratory Distress Cardiovascular: Regular Rate, Rhythm Gastrointestinal: Abnormal Bowel Sounds (quiet) Neurologic/Psychiatric: Alert, Oriented x3 Results/Procedures Lab Laboratory Tests 03/14/22 05:16 Patient resulted labs reviewed. Assessment/Plan Assessment and Plan Assess & Plan/Chief Complaint Appendiceal perforation with abscess CT read as appendiceal perf but surgery concerned for cecal perf POD #2 Continue Zosyn Management per primary, surgery HTN BP well controlled Continue Clonidine and metoprolol Trend Depression and Anxiety Xanax prn Cymbalta DVT ppx: SCDs Patient medically stable, BP and tachycardia improved. Will round prn, please call if any needs. FRANTZ JONES MD Mar 14, 2022 11:01
[2022-03-14 11:26] VITALS: BP 139/74
[2022-03-14] MEDS: morphine INJ 4 MG/ML 1 ML (VIAL/SYRINGE) IV PRN (11:36)
[2022-03-14 15:12] VITALS: BP 132/71
[2022-03-14 19:28] VITALS: BP 120/75
[2022-03-14] MEDS: cloNIDine 0.2 MG (CATAPRES) TAB PO SCH (20:07)
[2022-03-14] MEDS: ALPRAZolam 0.5 MG (XANAX) TAB PO SCH (20:07)
[2022-03-15 00:02] VITALS: BP 143/91
[2022-03-15] MEDS: PIPERACILLIN SODIUM/TAZOBACTAM 4.5 GM in NS (IVPB) 100 ML IV SCH ×2 (02:01→10:18)
[2022-03-15 04:26] VITALS: BP 117/79
[2022-03-15] MEDS: LEVOTHYROXINE 50 MCG (LEVOTHROID) TAB PO SCH (05:24)
[2022-03-15] MEDS: NS IV 1000 ML 1,000 ML IV SCH ×2 (05:25→13:40)
[2022-03-15] MEDS: HYDROcodone/APAP 5 MG/325 MG (LORTAB) TAB PO PRN ×2 (05:46→11:48)
[2022-03-15 06:55] LABS: HEMATOCRIT 30 % (35-52); HEMOGLOBIN 9.4 g/dL (11.5-16.0); MEAN CORPUSCULAR HEMOGLOBIN 29 pg (25-34); MEAN CORPUSCULAR HGB CONC 31 g/dL (32-36); MEAN CORPUSCULAR VOLUME 93 fL (80-99); MEAN PLATELET VOLUME 9.5 fL (9.0-12.2); PLATELET COUNT 297 10^3/uL (130-400); WHITE BLOOD COUNT 5.1 10^3/uL (4.3-11.0)
[2022-03-15 07:14] LABS: POTASSIUM 3.2 MMOL/L (3.6-5.0)
[2022-03-15 07:16] LABS: CALCIUM 8.5 MG/DL (8.5-10.1)
[2022-03-15 07:20] LABS: CREATININE SERUM 0.71 MG/DL (0.60-1.30)
--- NOTE | 2022-03-15 07:40 | Progress Note - Surgery ---
RAFFIISRAELSAL Min 03/15/22 0740: Subjective Date Seen by a Provider: Mar 15, 2022 Time Seen by a Provider: 07:35 Subjective/Events-last exam Pt is resting comfortably in bed. Pt states that her cough has become more productive of mucus but feels like she is breathing better. Pt notes improvement of abd pain but says she has some mild gas pain. Pt states that she continues to have flatus but no bowel movements. Pt had 100ml of serosanganeous drainage from MOJGAN drain. Pt states that her nausea was improved and will try to eat breakfast this morning. Pt says that she has been ambulating and using IS machine without issue. Pt's urine output was 1.09 ml/kg/hr over the past 7 hours. Pt denies vomiting, CP, SOB, and sweats. Review of Systems General: No Chills, No Night Sweats HEENT: No Head Aches, No Visual Changes Pulmonary: No Dyspnea, No Cough Cardiovascular: No: Chest Pain, Palpitations Gastrointestinal: No: Vomiting, Diarrhea Genitourinary: No Dysuria, No Frequency Musculoskeletal: No: neck pain, shoulder pain Neurological: No: Weakness, Numbness Objective Exam Vital Signs Date Time Temp Pulse Resp B/P (MAP) Pulse Ox O2 Delivery O2 Flow Rate FiO2 03/15/22 04:26 36.5 65 16 117/79 (92) 95 Nasal Cannula 3.00 03/15/22 00:02 36.8 71 16 143/91 (108) 96 Nasal Cannula 3.00 03/14/22 20:10 Room Air 03/14/22 19:28 35.9 78 20 120/75 (90) 100 Nasal Cannula 3.00 03/14/22 18:55 Nasal Cannula 2.00 03/14/22 15:12 36.2 79 18 132/71 (91) 100 Nasal Cannula 3.00 03/14/22 11:26 37.2 75 18 139/74 (95) 98 Nasal Cannula 3.00 03/14/22 08:00 98 Room Air 03/14/22 07:57 36.9 78 18 141/79 (99) 93 Nasal Cannula 3.00 I & O 03/15/22 07:00 Intake Total 4400 ml Output Total 2775 ml Balance 1625 ml Capillary Refill : Less Than 3 SecondsLess Than 3 Seconds General Appearance: No Apparent Distress, Obese HEENT: PERRL/EOMI, Normal ENT Inspection Neck: Normal Inspection, Non Tender Respiratory: Lungs Clear, No Respiratory Distress Cardiovascular: Regular Rate, Rhythm Gastrointestinal: soft, tenderness (rlq pain and incisional pain-improved, MOJGAN drain located LLQ containing serosanganeous fluid) Extremity: Normal Inspection, Normal Range of Motion Neurologic/Psychiatric: Alert, Oriented x3 Skin: Normal Color, Warm/Dry Lymphatic: No Adenopathy Results Lab Laboratory Tests 03/15/22 06:45: White Blood Count 5.1, Red Blood Count 3.20L, Hemoglobin 9.4L, Hematocrit 30L, Mean Corpuscular Volume 93, Mean Corpuscular Hemoglobin 29, Mean Corpuscular Hemoglobin Concent 31L, Red Cell Distribution Width 13.8, Platelet Count 297, Mean Platelet Volume 9.5, Sodium Level 138, Potassium Level 3.2L, Chloride Level 106, Carbon Dioxide Level 23, Anion Gap 9, Blood Urea Nitrogen 2L, Creatinine 0.71, Estimat Glomerular Filtration Rate 102, BUN/Creatinine Ratio 3, Glucose Level 102, Calcium Level 8.5 Microbiology 03/12/22 MRSA Screen - Final, Complete MRSA not isolated Assessment/Plan Assessment/Plan Assessment/Plan Right lower quadrant abdominal pain Nausea Appendiceal perforation intraabdominal abscess S/p laparoscopic lysis of adhesions, drainage of intraabdominal abscess, appendectomy hypokalemia Nauseau improved, Continue with dys 2 diet if pt can tolerate Continue abx IV fluids Continue pain control IS SCD"s and ambulate TID Replace JYOTHI VILLELA DO 03/15/22 1152: Subjective Subjective/Events-last exam Feeling better. Pain controlled. Clearing some mucous feels from ET Tube. Has flatus. Drain serous. Tolerating diet. Denies n/v fever sweats chills shortness of breath or chest pain. Using IS. Objective Exam General Appearance: No Apparent Distress, Obese HEENT: PERRL/EOMI, Normal ENT Inspection Neck: Normal Inspection, Non Tender Respiratory: Chest Non Tender, No Accessory Muscle Use, No Respiratory Distress Cardiovascular: Regular Rate, Rhythm, No JVD Gastrointestinal: soft, tenderness (rlq pain and incisional pain-improved, MOJGAN drain located LLQ containing serous fluid) Extremity: Normal Inspection, Normal Range of Motion Neurologic/Psychiatric: Alert, Oriented x3 Skin: Normal Color, Warm/Dry Lymphatic: No Adenopathy Assessment/Plan Assessment/Plan Assessment/Plan Right lower quadrant abdominal pain Nausea Appendiceal perforation intraabdominal abscess S/p laparoscopic lysis of adhesions, drainage of intraabdominal abscess, appendectomy hypokalemia Nausea improved, Diet as tolerated Continue abx convert to oral Continue pain control IS SCD"s and ambulate TID Replace K DC HOME Supervisory-Addendum Brief Verification & Attestation Participated in pt care: history, MDM, physical Personally performed: exam, history, MDM, supervision of care Care discussed with: Medical Student Procedures: n/a Results interpretation: Verified all documentation Verification and Attestation of Medical Student E/M Service A medical student performed and documented this service in my presence. I reviewed and verified all information documented by the medical student and made modifications to such information, when appropriate. I personally performed the physical exam and medical decision making. Jyothi Gomez, Mar 15, 2022,11:51 SAL LAWRENCE Mar 15, 2022 07:40 JYOTHI GOMEZ DO Mar 15, 2022 11:52
[2022-03-15] MEDS: GABAPENTIN 600 MG (NEURONTIN) TAB PO SCH ×2 (07:50→13:00)
[2022-03-15] MEDS: DULoxetine 30 MG (CYMBALTA) CAP PO SCH (07:50)
[2022-03-15] MEDS: meTOproloL SUCCINATE 50 MG (TOPROL XL) TAB PO SCH (07:50)
[2022-03-15 08:21] VITALS: BP 152/83
[2022-03-15] MEDS ORDERED: PANTOPRAZOLE 40 MG (PROTONIX) TAB PO SCH (09:00)
[2022-03-15 11:13] VITALS: BP 149/80
[2022-03-15] MEDS ORDERED: ACHD5005 PO (11:40)
[2022-03-15] MEDS ORDERED: AMOX1TAB12 PO (11:40)
--- NOTE | 2022-03-15 11:48 | Discharge Inst-Simple/Standard ---
Discharge Inst-Standard Discharge Medications New, Converted or Re-Newed RX: Transmitted to Pharmacy Patient Instructions/Follow Up Plan of Care/Instructions/FU: 2 weeks Ben When drain is less than 30 mL in [address] Contreras's office to have drain removed. Activity as Tolerated: No Discharge Diet: Regular Diet Other Inst to Patient Follow up Appt: Make appointment for 2 week. Instructions: No lifting greater than 10 pounds. No strenuous activity. May shower in 24 hours, no tub bath or soaking. Use incentive spirometer at home as directed. No Smoking Skin/Wound Care: You have special glue over your incision that will fall off on it's own. When drain is less than 30 mL in [address] Contreras's office to have drain removed. Symptoms to Report: Appetite Changes, Extremity Discoloration, Numbness/Tingling, Swelling Increased, Bleeding Excessive, Eyesight Changes, Pain Increased, Urine Color Change, Constipation(Persistent), Fever over 101 degree F, Pain/Pressure in chest, Urinating Difficulty, Cough Up/Vomit Blood, Heart Beat Irreg/Pounding, Pain/Pressure in jaw, Vaginal Bleeding Increase, Cramps in feet or legs, Lightheadedness, Pain/Pressure in shoulder, Diarrhea(Persistent), Memory Changes Suddenly, Questions/Concerns, Weight gain consecutive days, Dizziness/Fainting, Nausea/Vomiting, Shortness of Breath, Weight gain over 2 pounds If questions or concerns contact your physician Or seek help at emergency department. JYOTHI CONTRERAS DO Mar 15, 2022 11:48
[2022-03-15] MEDS ORDERED: KCL 20 MEQ TAB (K-DUR) PO NR (12:30)
== END 2022-03-15 15:30 | disposition home or self-care (01) | DRG 340 ==
LOC: EDUNIT# 08:08 → ER FS 08:09 → 4TH 11:12 → OBSVTOIN 11:12 → INTOOBSV 11:12 → 4TH 16:30
PROVIDERS: ADMIT Surgery; ATTEND Surgery
PROC: 0W9G3ZZ Drainage of Peritoneal Cavity, Percutaneous Approach (ICD-10-PCS; 2022-03-12)
PROC: 0DTJ4ZZ Resection of Appendix, Percutaneous Endoscopic Approach (ICD-10-PCS; principal; 2022-03-12 15:39)
DX: K35.33 Acute appendicitis with perforation, localized peritonitis, and gangrene, with abscess (principal); E87.6 Hypokalemia; I10 Essential (primary) hypertension; M06.9 Rheumatoid arthritis, unspecified; F32.A Depression, unspecified; J45.909 Unspecified asthma, uncomplicated; H54.7 Unspecified visual loss; F41.9 Anxiety disorder, unspecified; Z79.82 Long term (current) use of aspirin; Z88.2 Allergy status to sulfonamides; Z88.8 Allergy status to other drugs, medicaments and biological substances; Z82.49 Family history of ischemic heart disease and other diseases of the circulatory system
CPT/HCPCS: 36415; 74177; 80048; 80053; 81000; 83690; 85025; 85027; 86141; 87081; 88304; 93005; 94640; 94664; 94760; 96365; 96375; Q9967